=== PATIENT | female | born 1995 | race Caucasian/White ===

== ENCOUNTER 2021-10-29 09:20 | Emergency (ER) | payer OTHER, SELFPAY ==
[2021-10-29 09:41] VITALS: BP 105/71; PULSE 89; RESP 16; TEMP 37.1; O2SAT 99; BMI 25.2
--- NOTE | 2021-10-29 10:10 | ED_ITS ---
Documented by User: [email or web address] John 10/30/21 09:24 HPI - General: Chief complaint: OB/Uterine Contractions Stated complaint: 7 weeks /spotting Time Seen by Provider: 10/29/21 09:36 History of Present Illness: Patient is a 26-year-old female comes to the ED with spotting. Patient estimates she is approximately 7 weeks . This is her first . Yesterday she started having some bleeding that was little heavier. Today the bleeding has lightened up more and has become more of a spotting type bleeding but is consistent today. Denies any fevers, chills, nausea/vomiting, abdominal cramping pain, dysuria or hematuria. Her last menstrual period was September 10. Associated symptoms: Deny abdominal pain, dysuria, headache(s), nausea or vomiting Review of Systems Const: Denies: fever(s), chills or fatigue Eyes: Denies: change in vision or eye discomfort ENMT: Denies: throat pain, odynophagia, nasal discharge or nasal congestion Card: Denies: chest pain, palpitations, edema, swelling of feet/ankles, dyspnea on exertion or orthopnea Resp: Denies: dyspnea, productive cough or non-productive cough GI: Denies: abdominal pain, nausea, vomiting, diarrhea, constipation or hematochezia : Reports: vaginal bleeding (7 weeks with some spotting); Denies: flank pain, dysuria or hematuria Musc: Denies: neck pain, back pain or extremity swelling Skin/Breast: Denies: rash or new lesions Neuro: Denies: headache(s), numbness in extremities or weakness in extremities PFS ED PFSH: Medical History HTN (hypertension) Family History Father Hypertension Grandmother Hypertension H/O coronary angiogram with stents Hx of CABG Social History Smoking and tobacco status: never smoked Physical Exam Const: COMMON NORMALS: no acute distress, patient oriented x3 and alert GENERAL APPEARANCE: cooperative and comfortable HENMT: COMMON NORMALS: normocephalic HEAD & SCALP: normocephalic MOUTH: Normal oral and palatal mucosa present THROAT: posterior oropharynx normal and uvula midline Neck/C-Spine: COMMON NORMALS: supple GENERAL: Yes normal visual inspection Resp: COMMON NORMALS: normal respiratory effort, No retractions, No use of accessory muscles and clear to auscultation bilaterally AUSCULTATION: clear to auscultation bilaterally Cardio: COMMON NORMALS: regular rate, regular rhythm, S1 normal heart sound present, S2 normal heart sound present, No gallops present (Cardio), No clicks present (Cardio), No murmurs present (Cardio) and Peripheral pulses 2+ throughout RATE: regular rate RHYTHM: regular rhythm HEART SOUNDS: S1 normal heart sound present and S2 normal heart sound present PERIPHERAL PULSES: Peripheral pulses 2+ throughout GI: COMMON NORMALS: Normal to inspection, nondistended, normoactive bowel sounds present, Soft to palpation, non-tender and no masses PALPATION: Yes Soft to palpation : COMMON NORMALS: Yes no CVA tenderness BLADDER/KIDNEY EXAM: Yes no CVA tenderness Back/Pelvis: COMMON NORMALS: no CVA tenderness Extremity: COMMON NORMALS: normal to inspection Neuro: COMMON NORMALS: patient oriented x3 and moves all extremities SENSORIUM/ORIENTATION: Yes alert Skin: GENERAL SKIN EXAM: dry skin Course Vital Signs: Vital signs: Vital Signs Temperature 98.8 F 10/29/21 09:41 Pulse Rate 85 10/29/21 13:43 Respiratory Rate 16 10/29/21 13:43 Blood Pressure 99/55 10/29/21 13:43 Pulse Oximetry 99 10/29/21 13:43 MDM - OB/Uterine Contractions Medical Decision Making Patient is a G1 26-year-old female that is currently 7 weeks and comes to the ED with some vaginal spotting. Denies any heavy bleeding, cramping, nausea/vomiting or fevers. Vitals are stable. Patient appears nontoxic in no acute distress or pain. Rest of exam is benign. CBC, CMP and UA are un remarkable. hCG beta quant is 19,729. OB ultrasound shows a single live intrauterine with visualized pole and cardiac activity and estimated gestation age 6 weeks and 3 days. Small subchorionic hemorrhage noted. Patient was stable for discharge home and told to follow-up with her OB within the next week for reevaluation. She was diagnosed with bleeding in early due to subchorionic hemorrhage. Return to ED precautions given. Patient understood agree with plan. Lab Data I reviewed the patient's lab results. : 10/29/21 10:04 10/29/21 10:04 Radiology Impressions Obstetrics Ultrasound 10/29/21 10:13 IMPRESSION: 1. Single live intrauterine with tiny visualized pole and cardiac activity. Estimated gestational age 6 weeks 3 days 2. Small area of intrauterine subchorionic hemorrhage measuring 1.5 x 0.7 x 0.8 cm 3. No free fluid in the cul-de-sac. 4. Closed cervix measures 3.6 cm Laboratory Results WBC 6.5 10^3/uL (4.0-10.0) 10/29/21 10:04 RBC 4.18 10^6/uL (4.1-5.3) 10/29/21 10:04 Hgb 12.0 g/dL (11.5-15.3) 10/29/21 10:04 Hct 36.2 % (37.0-47.0) L 10/29/21 10:04 MCV 86.6 fl (81-99) 10/29/21 10:04 MCH 28.7 pg (28.0-34.0) 10/29/21 10:04 MCHC 33.1 g/dL (30.0-36.0) 10/29/21 10:04 RDW 12.5 % (12.1-15.1) 10/29/21 10:04 Plt Count 270 10^3/cmm (130-400) 10/29/21 10:04 MPV 10.1 fL (7.4-10.4) 10/29/21 10:04 Neut % (Auto) 69.2 % 10/29/21 10:04 Lymph % (Auto) 18.3 % 10/29/21 10:04 [place] % (Auto) 8.8 % 10/29/21 10:04 Eos % (Auto) 2.3 % 10/29/21 10:04 Baso % (Auto) 0.8 % 10/29/21 10:04 Neut # (Auto) 4.51 10^3/uL (1.8-7.7) 10/29/21 10:04 Lymph # (Auto) 1.2 10^3/uL (0.8-4.8) 10/29/21 10:04 [place] # (Auto) 0.6 10^3/uL (0.2-0.9) 10/29/21 10:04 Eos # (Auto) 0.2 10^3/uL (0.0-0.8) 10/29/21 10:04 Baso # (Auto) 0.1 10^3/uL (0.0-0.1) 10/29/21 10:04 Nucleated RBC % (auto) 0 % 10/29/21 10:04 Nucleated RBCs # 0.0 /100WBC 10/29/21 10:04 Sodium 136 mmol/L (136-145) 10/29/21 10:04 Potassium 3.8 mmol/L (3.5-5.1) 10/29/21 10:04 Chloride 101 mmol/L (98-107) 10/29/21 10:04 Carbon Dioxide 24 mmol/L (22-29) 10/29/21 10:04 Anion Gap 14.8 (5-19) 10/29/21 10:04 BUN 7 mg/dL (6-20) 10/29/21 10:04 Creatinine 0.7 mg/dL (0.5-0.9) 10/29/21 10:04 GFR Calculation 100.4 mL/min (90-130) 10/29/21 10:04 Glucose 95 mg/dL (65-115) 10/29/21 10:04 Calculated Osmolality 280 mOsm/kg (285-295) L 10/29/21 10:04 Calcium 8.9 mg/dL (8.5-10.5) 10/29/21 10:04 Total Bilirubin 0.3 mg/dL (0.15-1.2) 10/29/21 10:04 AST 17 U/L (0-32) 10/29/21 10:04 ALT 17 U/L (0-33) 10/29/21 10:04 Alkaline Phosphatase 74 IU/L (35-105) 10/29/21 10:04 Total Protein 7.2 g/dL (6.6-8.7) 10/29/21 10:04 Albumin 4.4 g/dL (3.5-5.2) 10/29/21 10:04 Globulin 2.8 g/dL (1.3-4.6) 10/29/21 10:04 Ser , Semi-Qnt 51974.00 mIU/mL 10/29/21 10:04 Urine Color Yellow (Yellow) 10/29/21 12:00 Urine Appearance Clear (CLEAR) 10/29/21 12:00 Urine pH 8 (5-7) H 10/29/21 12:00 Ur Specific [place] 1.010 (1.005-1.030) 10/29/21 12:00 Urine Protein Neg (Negative) 10/29/21 12:00 Urine Glucose (UA) Norm (Normal) 10/29/21 12:00 Urine Ketones Negative (Negative) 10/29/21 12:00 Urine Blood 3+ (Negative) H 10/29/21 12:00 Urine Nitrate Negative (Negative) 10/29/21 12:00 Urine Bilirubin Neg (Negative) 10/29/21 12:00 Prot Sulfosalicylic Acd Negative (Negative) 10/29/21 12:00 Urine Urobilinogen Norm mg/dL (Negative) 10/29/21 12:00 Ur Leukocyte Esterase Trace (Negative) H 10/29/21 12:00 Urine RBC 5-10 /hpf (0-2) H 10/29/21 12:00 Urine WBC 10-15 /hpf (0-5) H 10/29/21 12:00 Ur Squamous Epith Cells 5-10 /hpf (0-5) H 10/29/21 12:00 Amorphous Sediment Not Reportable 10/29/21 12:00 Urine Bacteria 1+ /hpf (NONE) H 10/29/21 12:00 Urine Mucus Trace /hpf 10/29/21 12:00 Discharge Plan Discharge Patient Disposition: Home Clinical Impression: Bleeding in early Subchorionic hemorrhage in first trimester Qualifiers: Fetus number: single or unspecified fetus Qualified Code(s): O41.8X10 - Other specified disorders of amniotic fluid and membranes, first trimester, not applicable or unspecified Condition: Stable Prescriptions: No Action labetalol 100 mg tablet 100 mg PO BID 0RF cetirizine [Zyrtec] 10 mg tablet 10 mg PO BEDTIME 0RF citalopram 20 mg tablet 20 mg PO BEDTIME 0RF Flonase 50 mcg/actuation Carlotta,Suspension 1 spray INTRANASAL DAILY PRN (Reason: Allergy Symptoms) 0RF Rx Instructions: administer into each nostril Multivitamins 28 mg iron- 800 mcg Tablet 1 tab PO DAILY 0RF magnesium citrate 125 mg Capsule 250 mg PO DAILY 0RF Discharge Orders: Discharge ED (Routine); Ordered 10/29/21 Ordered By: Richar Alex Referrals: Roxanna Armenta FNP [Primary Care Provider] - Discharge Diet: Regular Discharge Activity: Increase activity as tolerated Patient Instructions: Subchorionic Hemorrhage (ED), at 7 to 10 Weeks (ED) Activity Restrictions/Additional Instructions: Follow-up with your dairy clerk doctor within the next 5-7 days for reevaluation. Return to the ER or your medical provider if condition worsens. Please read and understand discharge instructions. Thank you for choosing [facility] for your healthcare needs today. Please realize this is an emergency room and that we are providing you with a m edical screening exam and this may not be complete and all inclusive of all the testing and or work up that you may need to determine your ailment or severity of your illness. It is very important that you follow up as instructed or that you return to the Emergency Department should you have concerns or if your condition changes or worsens in any way. Coding Level of Care Code ED Mailhouse Operator for Chg Fwd Exam Comprehensive Documented by User: Kory Subramanian DO 10/30/21 13:29 HPI - General: Chief complaint: OB/Uterine Contractions Stated complaint: 7 weeks /spotting Time Seen by Provider: 10/29/21 09:36 [facility] ED PFSH: Medical History HTN (hypertension) Family History Father Hypertension Grandmother Hypertension H/O coronary angiogram with stents Hx of CABG Social History Smoking and tobacco status: never smoked Course Vital Signs: Vital signs: Vital Signs Temperature 98.8 F 10/29/21 09:41 Pulse Rate 85 10/29/21 13:43 Respiratory Rate 16 10/29/21 13:43 Blood Pressure 99/55 10/29/21 13:43 Pulse Oximetry 99 10/29/21 13:43 MDM - OB/Uterine Contractions Medical Decision Making Patient is a G1 26-year-old female that is currently 7 weeks and comes to the ED with some vaginal spotting. Denies any heavy bleeding, cramping, nausea/vomiting or fevers. Vitals are stable. Patient appears nontoxic in no acute distress or pain. Rest of exam is benign. CBC, CMP and UA are unremarkable. hCG beta quant is 19,729. OB ultrasound shows a single live intrauterine with visualized pole and cardiac activity and estimated gestation age 6 weeks and 3 days. Small subchorionic hemorrhage noted. Patient was stable for discharge home and told to follow-up with her OB within the next week for reevaluation. She was diagnosed with bleeding in early due to subchorionic hemorrhage. Return to ED precautions given. Pat ient understood agree with plan. Chart reviewed and patient discussed with midlevel. Agree with assessment and plan. Lab Data : 10/29/21 10:04 10/29/21 10:04 Radiology Impressions Obstetrics Ultrasound 10/29/21 10:13 IMPRESSION: 1. Single live intrauterine with tiny visualized pole and cardiac activity. Estimated gestational age 6 weeks 3 days 2. Small area of intrauterine subchorionic hemorrhage measuring 1.5 x 0.7 x 0.8 cm 3. No free fluid in the cul-de-sac. 4. Closed cervix measures 3.6 cm Laboratory Results WBC 6.5 10^3/uL (4.0-10.0) 10/29/21 10:04 RBC 4.18 10^6/uL (4.1-5.3) 10/29/21 10:04 Hgb 12.0 g/dL (11.5-15.3) 10/29/21 10:04 Hct 36.2 % (37.0-47.0) L 10/29/21 10:04 MCV 86.6 fl (81-99) 10/29/21 10:04 MCH 28.7 pg (28.0-34.0) 10/29/21 10:04 MCHC 33.1 g/dL (30.0-36.0) 10/29/21 10:04 RDW 12.5 % (12.1-15.1) 10/29/21 10:04 Plt Count 270 10^3/cmm (130-400) 10/29/21 10:04 MPV 10.1 fL (7.4-10.4) 10/29/21 10:04 Neut % (Auto) 69.2 % 10/29/21 10:04 Lymph % (Auto) 18.3 % 10/29/21 10:04 [place] % (Auto) 8.8 % 10/29/21 10:04 Eos % (Auto) 2.3 % 10/29/21 10:04 Baso % (Auto) 0.8 % 10/29/21 10:04 Neut # (Auto) 4.51 10^3/uL (1.8-7.7) 10/29/21 10:04 Lymph # (Auto) 1.2 10^3/uL (0.8-4.8) 10/29/21 10:04 [place] # (Auto) 0.6 10^3/uL (0.2-0.9) 10/29/21 10:04 Eos # (Auto) 0.2 10^3/uL (0.0-0.8) 10/29/21 10:04 Baso # (Auto) 0.1 10^3/uL (0.0-0.1) 10/29/21 10:04 Nucleated RBC % (auto) 0 % 10/29/21 10:04 Nucleated RBCs # 0.0 /100WBC 10/29/21 10:04 Sodium 136 mmol/L (136-145) 10/29/21 10:04 Potassium 3.8 mmol/L (3.5-5.1) 10/29/21 10:04 Chloride 101 mmol/L (98-107) 10/29/21 10:04 Carbon Dioxide 24 mmol/L (22-29) 10/29/21 10:04 Anion Gap 14.8 (5-19) 10/29/21 10:04 BUN 7 mg/dL (6-20) 10/29/21 10:04 Creatinine 0.7 mg/dL (0.5-0.9) 10/29/21 10:04 GFR Calculation 100.4 mL/min (90-130) 10/29/21 10:04 Glucose 95 mg/dL (65-115) 10/29/21 10:04 Calculated Osmolality 280 mOsm/kg (285-295) L 10/29/21 10:04 Calcium 8.9 mg/dL (8.5-10.5) 10/29/21 10:04 Total Bilirubin 0.3 mg/dL (0.15-1.2) 10/29/21 10:04 AST 17 U/L (0-32) 10/29/21 10:04 ALT 17 U/L (0-33) 10/29/21 10:04 Alkaline Phosphatase 74 IU/L (35-105) 10/29/21 10:04 Total Protein 7.2 g/dL (6.6-8.7) 10/29/21 10:04 Albumin 4.4 g/dL (3.5-5.2) 10/29/21 10:04 Globulin 2.8 g/dL (1.3-4.6) 10/29/21 10:04 Ser , Semi-Qnt 93335.00 mIU/mL 10/29/21 10:04 Urine Color Yellow (Yellow) 10/29/21 12:00 Urine Appearance Clear (CLEAR) 10/29/21 12:00 Urine pH 8 (5-7) H 10/29/21 12:00 Ur Specific [place] 1.010 (1.005-1.030) 10/29/21 12:00 Urine Protein Neg (Negative) 10/29/21 12:00 Urine Glucose (UA) Norm (Normal) 10/29/21 12:00 Urine Ketones Negative (Negative) 10/29/21 12:00 Urine Blood 3+ (Negative) H 10/29/21 12:00 Urine Nitrate Negative (Negative) 10/29/21 12:00 Urine Bilirubin Neg (Negative) 10/29/21 12:00 Prot Sulfosalicylic Acd Negative (Negative) 10/29/21 12:00 Urine Urobilinogen Norm mg/dL (Negative) 10/29/21 12:00 Ur Leukocyte Esterase Trace (Negative) H 10/29/21 12:00 Urine RBC 5-10 /hpf (0-2) H 10/29/21 12:00 Urine WBC 10-15 /hpf (0-5) H 10/29/21 12:00 Ur Squamous Epith Cells 5-10 /hpf (0-5) H 10/29/21 12:00 Amorphous Sediment Not Reportable 10/29/21 12:00 Urine Bacteria 1+ /hpf (NONE) H 10/29/21 12:00 Urine Mucus Trace /hpf 10/29/21 12:00 Discharge Plan Discharge Patient Disposition: Home Clinical Impression: Bleeding in early Subchorionic hemorrhage in first trimester Qualifiers: Fetus number: single or unspecified fetus Qualified Code(s): O41.8X10 - Other specified disorders of amniotic fluid and membranes, first trimester, not applicable or unspecified Condition: Stable Prescriptions: No Action labetalol 100 mg tablet 100 mg PO BID 0RF cetirizine [Zyrtec] 10 mg tablet 10 mg PO BEDTIME 0RF citalopram 20 mg tablet 20 mg PO BEDTIME 0RF Flonase 50 mcg/actuation Carlotta,Suspension 1 spray INTRANASAL DAILY PRN (Reason: Allergy Symptoms) 0RF Rx Instructions: administer into each nostril Multivitamins 28 mg iron- 800 mcg Tablet 1 tab PO DAILY 0RF magnesium citrate 125 mg Capsule 250 mg PO DAILY 0RF Discharge Orders: Discharge ED (Routine); Ordered 10/29/21 Ordered By: Richar Alex Referrals: Roxanna Armenta FNP [Primary Care Provider] - Discharge Diet: Regular Discharge Activity: Increase activity as tolerated Patient Instructions: Subchorionic Hemorrhage (ED), at 7 to 10 Weeks (ED) Activity Restrictions/Additional Instructions: Follow-up with your dairy clerk doctor within the next 5-7 days for reevaluation. Return to the ER or your medical provider if condition worsens. Please read and understand discharge instructions. Thank you for choosing [facility] for your healthcare needs today. Tammy wilkins realize this is an emergency room and that we are providing you with a medical screening exam and this may not be complete and all inclusive of all the testing and or work up that you may need to determine your ailment or severity of your illness. It is very important that you follow up as instructed or that you return to the Emergency Department should you have concerns or if your condition changes or worsens in any way. Coding Level of Care Code ED Mailhouse Operator for Ce Fwd Exam Comprehensive
--- NOTE | 2021-10-29 10:13 | US_ITS ---
WS: [id number] ULTRASOUND EARLY TECHNIQUE: Transabdominal sonography of the pelvis was performed. Followed by transvaginal sonography to better evaluate the uterus and ovaries. CLINICAL INFORMATION: 7 weeks with light vaginal bleeding LMP: 09/12/2021 Beta hCG: Unknown. COMPARISON: None. FINDINGS: Cervix measures 3.6 cm. Incidental nabothian cysts in the cervix. UTERUS AND GESTATIONAL SAC Intrauterine gestations: Single live intrauterine gestation with cardiac activity. Yolk sac is presen t. Estimated gestational age: 6w3d Estimated delivery June 21, 2022 Yolk sac: 0.3 cm. [place] rump length (CRL): 0.6 cm. heart motion: 124 BPM. Subchorionic hemorrhage: Small area of intrauterine subchorionic hemorrhage adjacent to the gestational sac measuring 1.5 x 0. 7 x 0.8 cm OVARIES Right ovary: Normal. Left ovary: Normal. FREE FLUID None. US/US OB lmt with transvaginal IMPRESSION: 1. Single live intrauterine with tiny visualized pole and feta l cardiac activity. Estimated gestational age 6 weeks 3 days 2. Small area of intrauterine subchorionic hemorrhage measuring 1.5 x 0.7 x 0. 8 cm 3. No free fluid in the cul-de-sac. 4. Closed cervix measures 3.6 cm
[2021-10-29 10:16] LABS: Basophils # 0.1 10^3/uL (0.0-0.1); Basophils % 0.8 %; Eosinophils # 0.2 10^3/uL (0.0-0.8); Eosinophils % 2.3 %; Hematocrit 36.2 % (37.0-47.0); Lymphocytes # 1.2 10^3/uL (0.8-4.8); Lymphocytes % 18.3 %; Mean Corpuscular HGB Conc 33.1 g/dL (30.0-36.0); Mean Corpuscular Hemoglobin 28.7 pg (28.0-34.0); Mean Corpuscular Volume 86.6 fl (81-99); Mean Platelet Volume 10.1 fL (7.4-10.4); Monocytes # 0.6 10^3/uL (0.2-0.9); Monocytes % 8.8 %; Neutrophils # 4.51 10^3/uL (1.8-7.7); Neutrophils % 69.2 %; Nucleated Red Blood Cells % 0 %; Platelet Count 270 10^3/cmm (130-400); Red Blood Count 4.18 10^6/uL (4.1-5.3); Red Cell Distribution Width 12.5 % (12.1-15.1); White Blood Count 6.5 10^3/uL (4.0-10.0)
[2021-10-29 10:17] VITALS: BP 111/90; PULSE 81; O2SAT 100
[2021-10-29 10:53] LABS: Alanine Aminotransferase 17 U/L (0-33); Albumin Level 4.4 g/dL (3.5-5.2); Alkaline Phosphatase 74 IU/L (35-105); Anion Gap 14.8 (5-19); Aspartate Amino Transferase 17 U/L (0-32); Blood Urea Nitrogen 7 mg/dL (6-20); Calcium 8.9 mg/dL (8.5-10.5); Carbon Dioxide 24 mmol/L (22-29); Chloride 101 mmol/L (98-107); Globulin 2.8 g/dL (1.3-4.6); Glomerular Filtration Rate 100.4 mL/min (90-130); Glucose 95 mg/dL (65-115); Osmolality Calculated 280 mOsm/kg (285-295); Potassium 3.8 mmol/L (3.5-5.1); Sodium 136 mmol/L (136-145); Total Bilirubin 0.3 mg/dL (0.15-1.2); Total Protein 7.2 g/dL (6.6-8.7)
[2021-10-29 12:00] VITALS: BP 121/72; PULSE 86; O2SAT 99
[2021-10-29 13:04] LABS: Glucose Urine UA Norm (Normal); Protein Urine Neg (Negative); Urine Appearance Clear (CLEAR); Urine Color Yellow (Yellow); pH Urine 8 (5-7)
[2021-10-29 13:05] LABS: Add Urine Culture? No; Add Urine Microscopic? YES; Bacteria Urine 1+ /hpf; Bilirubin Urine Neg (Negative); Blood Urine 3+ (Negative); Ketones Urine Negative (Negative); Leukocyte Esterase Urine Trace (Negative); Mucus Urine TRACE /hpf; Nitrate Urine Negative (Negative); Sulfosalicylic Acid Urine Negative (Negative); Urobilinogen Urine Norm (Negative)
[2021-10-29 13:43] VITALS: BP 99/55; PULSE 85; RESP 16; O2SAT 99
== END 2021-10-29 13:43 | disposition home or self-care (01) ==
PROVIDERS: Emergency Provider Physician Assistant; PCP Nurse Practitioner Family
DX: O41.8X10 Other specified disorders of amniotic fluid and membranes, first trimester, not applicable or unspecified (principal); Z3A.01 Less than 8 weeks gestation of pregnancy; O16.1 Unspecified maternal hypertension, first trimester
CPT/HCPCS: 76815; 76817; 80053; 81001; 84702; 85025; 99283

== ENCOUNTER → 2021-11-07 14:47 | Outpatient (BNVA) | payer OTHER, SELFPAY | PROVIDERS: PCP Nurse Practitioner Family; Visit Provider Family Medicine | DX: I10 Essential (primary) hypertension (principal); Z34.90 Encounter for supervision of normal pregnancy, unspecified, unspecified trimester | CPT/HCPCS: 80307; 81000; 87086 ==

== ENCOUNTER 2021-11-13 10:46 | Outpatient (CLI) | payer OTHER, SELFPAY ==
[2021-11-13 11:59] LABS: Basophils # 0.1 10^3/uL (0.0-0.1); Basophils % 0.6 %; Eosinophils # 0.1 10^3/uL (0.0-0.8); Eosinophils % 0.7 %; Hematocrit 34.5 % (37.0-47.0); Hemoglobin 11.6 g/dL (11.5-15.3); Lymphocytes # 1.7 10^3/uL (0.8-4.8); Lymphocytes % 17.1 %; Mean Corpuscular HGB Conc 33.6 g/dL (30.0-36.0); Mean Corpuscular Hemoglobin 28.4 pg (28.0-34.0); Mean Corpuscular Volume 84.6 fl (81-99); Mean Platelet Volume 10.7 fL (7.4-10.4); Monocytes # 0.5 10^3/uL (0.2-0.9); Neutrophils % 76.2 %; Nucleated Red Blood Cells % 0 %; Platelet Count 299 10^3/cmm (130-400); Red Blood Count 4.08 10^6/uL (4.1-5.3); Red Cell Distribution Width 12.2 % (12.1-15.1)
[2021-11-13 13:01] LABS: Hepatitis B Surface Antigen Non-Reactive (Nonreactive)
[2021-11-13 13:04] LABS: Rapid Plasma Reagin Syphilis Nonreactive (Nonreactive); Thyroid Stimulating Hormone 1.49 uIU/mL (0.27-4.20)
[2021-11-13 13:41] LABS: Progesterone 20.22 ng/mL
== END 2021-11-13 10:47 | disposition home or self-care (01) ==
PROVIDERS: PCP Nurse Practitioner Family; Visit Provider Family Medicine
DX: I10 Essential (primary) hypertension (principal); Z34.90 Encounter for supervision of normal pregnancy, unspecified, unspecified trimester
CPT/HCPCS: 36415; 84144; 84443; 85025; 86592; 86762; 86850; 86900; 87340

== ENCOUNTER → 2021-11-19 11:28 | Outpatient (BNVA) | payer OTHER, SELFPAY | PROVIDERS: PCP Nurse Practitioner Family; Visit Provider Family Medicine | DX: Z34.90 Encounter for supervision of normal pregnancy, unspecified, unspecified trimester (principal) | CPT/HCPCS: 84156 ==

== ENCOUNTER → 2022-02-05 10:40 | Outpatient (BNVA) | payer OTHER, SELFPAY | PROVIDERS: PCP Nurse Practitioner Family; Visit Provider Family Medicine | DX: Z34.00 Encounter for supervision of normal first pregnancy, unspecified trimester (principal) | CPT/HCPCS: 76805 ==

== ENCOUNTER → 2022-02-27 13:38 | Outpatient (BNVA) | payer OTHER, SELFPAY | PROVIDERS: PCP Nurse Practitioner Family; Visit Provider Family Medicine | DX: Z34.00 Encounter for supervision of normal first pregnancy, unspecified trimester (principal) | CPT/HCPCS: 76815 ==

== ENCOUNTER → 2022-03-07 08:51 | Outpatient (BNVA) | payer OTHER, SELFPAY | PROVIDERS: PCP Nurse Practitioner Family; Visit Provider Family Medicine | DX: Z34.00 Encounter for supervision of normal first pregnancy, unspecified trimester (principal) | CPT/HCPCS: 82950; 84702; 87806 ==

== ENCOUNTER → 2022-03-19 12:23 | Outpatient (BNVA) | payer OTHER, SELFPAY | PROVIDERS: PCP Nurse Practitioner Family; Visit Provider Family Medicine | DX: R10.31 Right lower quadrant pain (principal); I10 Essential (primary) hypertension; Z34.00 Encounter for supervision of normal first pregnancy, unspecified trimester; O41.8X10 Other specified disorders of amniotic fluid and membranes, first trimester, not applicable or unspecified; O46.8X1 Other antepartum hemorrhage, first trimester; Z34.90 Encounter for supervision of normal pregnancy, unspecified, unspecified trimester | CPT/HCPCS: 80053; 81000; 84702; 85025; 86140; 86141; 87077; 87086; 87106; 87184; 87389; 87806 ==

== ENCOUNTER 2022-03-20 12:54 | Outpatient (CLI) | payer OTHER, SELFPAY ==
--- NOTE | 2022-03-20 13:00 | US_ITS ---
WS: [id number] ULTRASOUND ABDOMEN LIMITED CLINICAL INFORMATION: RLQ/RUQ abd pain - COMPARISON: None. FINDINGS: Appendix not visualized. No free fluid in the RIGHT lower quadrant. Liver Size: Normal. Craniocaudal length: 14.6 cm. Echogenicity: Normal. Surface nodularity: None. Mass (size and location): None. Bile ducts Intrahepatic ducts: Normal. Common bile duct diameter: 0.4 cm. Gallbladder Nonmobile gallbladder calculus at the level of the gallbladder neck. Gallbladder sludge. No gallbladd er wall thickening or pericholecystic fluid. Gallstones: Present Gallbladder sludge: Present Gallbladder wall thickening: None. Pericholecystic fluid: None. Pancreas Normal as visualized. Right kidney: Normal. Hydronephrosis: None. Size: 11.5 cm x 6.8 cm x 4.9 cm. Abdominal aorta and IVC Visualized portions are normal. Ascites: None. US/US abdomen limited [id number] IMPRESSION: 1. Normal liver. 2. Shadowing gallbladder calculus at the gallbladder neck. No movement of calc ulus with maneuvers. Gallbladder sludge. Pain reported in the RIGHT upper quadr ant although No significant gallbladder wall thickening or pericholecystic flui d to indicate acute cholecystitis. Recommend correlation with laboratory marker s. 3. Normal common bile duct. 4. No hydronephrosis in RIGHT kidney. 5. Appendix not visualized.
== END 2022-03-20 12:55 | disposition home or self-care (01) ==
PROVIDERS: PCP Nurse Practitioner Family; Visit Provider Family Medicine
DX: Z34.00 Encounter for supervision of normal first pregnancy, unspecified trimester (principal); R10.31 Right lower quadrant pain; R10.11 Right upper quadrant pain; R11.2 Nausea with vomiting, unspecified
CPT/HCPCS: 76705

== ENCOUNTER 2022-03-26 16:39 | Outpatient (CLI) | payer OTHER, SELFPAY ==
[2022-03-26 16:55] VITALS: BP 136/82; PULSE 106
[2022-03-26 16:59] VITALS: RESP 17; TEMP 36.9; BMI 32.9
[2022-03-26 17:10] VITALS: BP 114/74; PULSE 93
[2022-03-26 17:25] VITALS: BP 117/76; PULSE 94
== END 2022-03-26 17:32 | disposition home or self-care (01) ==
LOC: OPOB 16:47 → OBGYN 16:48
PROVIDERS: PCP Nurse Practitioner Family; Visit Provider Family Medicine
DX: O26.899 Other specified pregnancy related conditions, unspecified trimester (principal); Z3A.00 Weeks of gestation of pregnancy not specified; M54.9 Dorsalgia, unspecified
CPT/HCPCS: 59025; 99211

== ENCOUNTER 2022-03-26 17:36 | Emergency (ER) | payer OTHER, SELFPAY ==
[2022-03-26] VITALS (9 sets, daily range): BP systolic 106–137; BP diastolic 61–86; PULSE 84–105; RESP 15–16; TEMP 36.2; O2SAT 97–100
--- NOTE | 2022-03-26 18:40 | USR_ITS ---
PROCEDURE INFORMATION: Exam: US Abdomen, Limited; Right Upper Quadrant Exam date and time: 03/26/2022 7:32 PM Age: 26 years old Clinical indication: Abdominal pain; Flank; Right; ; Additional info: Abd pain TECHNIQUE: Imaging protocol: Real time ultrasound of the abdomen with image documentation. Limited exam focused on the right upper quadrant. COMPARISON: US abdomen limited [id number] 03/20/2022 1:05 PM FINDINGS: Liver: The liver is unremarkable. Gallbladder: The gallbladder is nondistended. There is a shadowing mobile gallstone in the lumen. The gallbladder wall is not thickened. There is no pericholecystic fluid. Sonographic Bassett sign is negative. Biliary ducts: The common bile duct is nondilated measuring 4 mm Pancreas: Pancreas is unremarkable. Right kidney: The right kidney is unremarkable. No hydronephrosis. Aorta: The abdominal aorta is unremarkable. the IVC is unremarkable. Portal venous: The main portal vein is patent. US/US gall bladder [id number] IMPRESSION: 1. Cholelithiasis without evidence of cholecystitis. 2. No hydronephrosis on the right.
--- NOTE | 2022-03-26 19:21 | W.ED.ABDPA2 ---
HPI - Abdominal Pain General: Chief Complaint: Abdominal Pain Stated Complaint: ABD Pain Time Seen by Provider: 03/26/22 19:21 History of Present Illness: Ms. Mercedes is a 26-year-old lady currently approximately 28 weeks with known history of cholelithiasis presenting to the emergency department due to more constant flank pain. Patient reports sharp pain in the right flank starting at 6 AM symptoms more constant since that time. She reports this is similar to prior episodes and what brought her in previously for evaluation however is persisted. Four episodes of nausea and vomiting which is nonbilious and nonbloody. No fevers or chills. No respiratory symptoms. Denies other GI symptoms. No other specific changes in health, exacerbating, or alleviating factors identified. Onset (ago): hour(s) Pain Consistency: constant Location: RUQ Severity: moderate Quality: stabbing and sharp Migration to: no migration Exacerbating factors: nothing Relieving factors: nothing Context: other Associated Symptoms: Reports nausea and vomiting Review of Systems General: Reports: 10 or more systems reviewed and unremarkable except in HPI and below GI: Reports: nausea and vomiting PFSH ED PFSH: Medical History Contraceptive use Encounter for dietary treatment of hypertension HTN (hypertension) Psychiatric care Family History Father Hypertension Grandmother Hypertension H/O coronary angiogram with stents Hx of CABG Social History Smoking and tobacco status: never smoked Physical Exam Const: COMMON NORMALS: alert GENERAL APPEARANCE: cooperative and well developed HENMT: COMMON NORMALS: normocephalic and atraumatic HEAD & SCALP: normocephalic and atraumatic Eye: COMMON NORMALS: conjunctivae normal CONJUNCTIVA: Yes conjunctivae normal SCLERA: sclerae normal Neck/C-Spine: COMMON NORMALS: supple GENERAL: Yes trachea midline Resp: COMMON NORMALS: normal respiratory effort EFFORT & INSPECTION: Yes able to speak in complete sentences Cardio: COMMON NORMALS: regular rate and regular rhythm RATE: regular rate RHYTHM: regular rhythm GI: COMMON NORMALS: Soft to palpation PALPATION: Yes Soft to palpation, Yes Tenderness to palpation present (GI), No Guarding due to palpation present (GI) and No Rigid due to palpation Extremity: GENERAL: Yes normal exam except as noted and No edema Neuro: COMMON NORMALS: moves all extremities SENSORIUM/ORIENTATION: Yes alert and No Orientation impaired Psych: COMMON NORMALS: mental status grossly normal and Normal thought process present THOUGHT PROCESS: Normal thought process present Course Vital Signs: Vital signs: Vital Signs Temperature 97.2 F L 03/26/22 17:39 Pulse Rate 95 03/26/22 21:00 Respiratory Rate 16 03/26/22 21:00 Blood Pressure 107/61 03/26/22 21:00 Pulse Oximetry 98 03/26/22 21:00 Oxygen Delivery Me thod 03/26/22 17:39 MDM - Abdominal Pain Medical Decision Making 26-year-old lady presenting with known history of cholelithiasis and now more constant abdominal discomfort. Patient is nontoxic on exam. Exam as above. Labs with minimal leukocytosis, normocytic anemia. No significant metabolic derangement outside expected for . No evidence of UTI. Ultrasound with no evidence of cholecystitis. Patient improved with antiemetic, acetaminophen, fluids and able to tolerate p.o. intake. The results of ED evaluation were discussed with the patient including prescriptions and/or symptomatic cares (if applicable) including appropriate and responsible use, followup plan, and return precautions. The patient verbalized understanding and felt safe for discharge. Medical Records I reviewed the patient's medical records. Lab Data I reviewed the patient's lab results. 03/26/22 19:55 03/26/22 19:55 Labs/Radiology: Radiology Impressions Gallbladder Ultrasound 03/26/22 18:40 IMPRESSION: 1. Cholelithiasis without evidence of cholecystitis. 2. No hydronephrosis on the right. Laboratory Results WBC 11.5 10^3/uL (4.0-10.0) H 03/26/22 19:55 RBC 3.44 10^6/uL (4.1-5.3) L 03/26/22 19:55 Hgb 10.1 g/dL (11.5-15.3) L 03/26/22 19:55 Hct 31.1 % (37.0-47.0) L 03/26/22 19:55 MCV 90.4 fl (81-99) 03/26/22 19:55 MCH 29.4 pg (28.0-34.0) 03/26/22 19:55 MCHC 32.5 g/dL (30.0-36.0) 03/26/22 19:55 RDW 12.8 % (12.1-15.1) 03/26/22 19:55 Plt Count 218 10^3/cmm (130-400) 03/26/22 19:55 MPV 9.9 fL (7.4-10.4) 03/26/22 19:55 Neut % (Auto) 76.9 % 03/26/22 19:55 Lymph % (Auto) 14.3 % 03/26/22 19:55 Rush % (Auto) 5.9 % 03/26/22 19:55 Eos % (Auto) 1.0 % 03/26/22 19:55 Baso % (Auto) 0.3 % 03/26/22 19:55 Neut # (Auto) 8.84 10^3/uL (1.8-7.7) H 03/26/22 19:55 Lymph # (Auto) 1.6 10^3/uL (0.8-4.8) 03/26/22 19:55 Rush # (Auto) 0.7 10^3/uL (0.2-0.9) 03/26/22 19:55 Eos # (Auto) 0.1 10^3/uL (0.0-0.8) 03/26/22 19:55 Baso # (Auto) 0.0 10^3/uL (0.0-0.1) 03/26/22 19:55 Nucleated RBC % (auto) 0 % 03/26/22 19:55 Nucleated RBCs # 0.0 /100WBC 03/26/22 19:55 Sodium 138 mmol/L (136-145) 03/26/22 19:55 Potassium 3.7 mmol/L (3.5-5.1) 03/26/22 19:55 Chloride 103 mmol/L (98-107) 03/26/22 19:55 Carbon Dioxide 21 mmol/L (22-29) L 03/26/22 19:55 Anion Gap 17.7 (5-19) 03/26/22 19:55 BUN 4 mg/dL (6-20) L 03/26/22 19:55 Creatinine 0.5 mg/dL (0.5-0.9) 03/26/22 19:55 GFR Calculation 148.0 mL/min (90-130) H 03/26/22 19:55 Glucose 86 mg/dL (65-115) 03/26/22 19:55 Calculated Osmolality 282 mOsm/kg (285-295) L 03/26/22 19:55 Calcium 8.8 mg/dL (8.5-10.5) 03/26/22 19:55 Total Bilirubin 0.2 mg/dL (0.15-1.2) 03/26/22 19:55 AST 15 U/L (0-32) 03/26/22 19:55 ALT 9 U/L (0-33) 03/26/22 19:55 Alkaline Phosphatase 75 U/L (35-105) 03/26/22 19:55 Total Protein 6.5 g/dL (6.6-8.7) L 03/26/22 19:55 Albumin 3.4 g/dL (3.5-5.2) L 03/26/22 19:55 Globulin 3.1 g/dL (1.3-4.6) 03/26/22 19:55 Lipase 16 U/L (13-60) 03/26/22 19:55 Urine Color Yellow (Yellow) 03/26/22 21:51 Urine Appearance Clear (CLEAR) 03/26/22 21:51 Urine pH 6 (5-7) 03/26/22 21:51 Ur Specific [place] 1.015 (1.005-1.030) 03/26/22 21:51 Urine Protein Neg (Negative) 03/26/22 21:51 Urine Glucose (UA) Norm (Normal) 03/26/22 21:51 Urine Ketones 2+ (Negative) H 03/26/22 21:51 Urine Blood Neg (Negative) 03/26/22 21:51 Urine Nitrate Negative (Negative) 03/26/22 21:51 Urine Bilirubin Neg (Negative) 03/26/22 21:51 Urine Urobilinogen Norm mg/dL (Negative) 03/26/22 21:51 Ur Leukocyte Esterase Negative (Negative) 03/26/22 21:51 Discharge Plan Discharge Patient Disposition: Home Clinical Impression: Cholelithiasis affecting , antepartum Condition: Stable Prescriptions: New cyclobenzaprine 10 mg tablet 10 mg PO BID PRN (Reason: muscle spasm) Qty: 10 0RF No Action cetirizine [Zyrtec] 10 mg tablet 10 mg PO BEDTIME ondansetron 8 mg tablet,disintegrating 8 mg PO Q8H PRN (Reason: nausea and vomiting) Qty: 30 4RF ampicillin 500 mg capsule 500 mg PO QID 10 Days Qty: 40 0RF Flonase 50 mcg/actuation Vadito,Suspension 1 spray INTRANASAL DAILY PRN (Reason: Allergy Symptoms) Rx Instructions: administer into each nostril PNV cmb#95-ferrous fumarate-FA [ Multivitamins] 28 mg iron- 800 mcg Tablet 1 tab PO DAILY Discharge Orders: Discharge ED (Routine); Ordered 03/26/22 Ordered By: Gautam Majano Referrals: Roxanna Armenta FNP [Primary Care Provider] - Discharge Diet: Low Fat Discharge Activity: Increase activity as tolerated Patient Instructions: Biliary Colic (ED) Activity Restrictions/Additional Instructions: Thank you for visiting the emergency department. You were seen and evaluated for flank and back pain. The exact cause of your symptoms is unclear though likely related to biliary colic. Treatment is limited during , do not take NSAIDs such as ibuprofen, Aleve, or other similar medications within the same class. Please follow-up with your surgeon and marketing information coordinator as well as primary care provider. Return to the emergency department for fevers, inability to tolerate oral intake, uncontrolled symptoms or anything else that you are concerned about and feel needs emergency department evaluation. Coding Level of Care Code ED Front Tender for Ce Singletary
[2022-03-26 20:03] LABS: Basophils % 0.3 %; Eosinophils # 0.1 10^3/uL (0.0-0.8); Hematocrit 31.1 % (37.0-47.0); Hemoglobin 10.1 g/dL (11.5-15.3); Lymphocytes # 1.6 10^3/uL (0.8-4.8); Lymphocytes % 14.3 %; Mean Corpuscular HGB Conc 32.5 g/dL (30.0-36.0); Mean Corpuscular Hemoglobin 29.4 pg (28.0-34.0); Mean Corpuscular Volume 90.4 fl (81-99); Mean Platelet Volume 9.9 fL (7.4-10.4); Monocytes # 0.7 10^3/uL (0.2-0.9); Monocytes % 5.9 %; Neutrophils # 8.84 10^3/uL (1.8-7.7); Neutrophils % 76.9 %; Nucleated Red Blood Cells % 0 %; Platelet Count 218 10^3/cmm (130-400); Red Blood Count 3.44 10^6/uL (4.1-5.3); Red Cell Distribution Width 12.8 % (12.1-15.1); White Blood Count 11.5 10^3/uL (4.0-10.0)
[2022-03-26 20:18] LABS: Alanine Aminotransferase 9 U/L (0-33); Albumin Level 3.4 g/dL (3.5-5.2); Alkaline Phosphatase 75 U/L (35-105); Anion Gap 17.7 (5-19); Aspartate Amino Transferase 15 U/L (0-32); Blood Urea Nitrogen 4 mg/dL (6-20); Calcium 8.8 mg/dL (8.5-10.5); Carbon Dioxide 21 mmol/L (22-29); Chloride 103 mmol/L (98-107); Globulin 3.1 g/dL (1.3-4.6); Glucose 86 mg/dL (65-115); Lipase 16 U/L (13-60); Osmolality Calculated 282 mOsm/kg (285-295); Potassium 3.7 mmol/L (3.5-5.1); Sodium 138 mmol/L (136-145); Total Bilirubin 0.2 mg/dL (0.15-1.2); Total Protein 6.5 g/dL (6.6-8.7)
[2022-03-26] MEDS: sodium chloride 0.9% 1,000 ML 999 ML IV (20:20)
[2022-03-26] MEDS: metoclopramide 5 mg/mL SDV 2 mL 10 MG IVP (20:20)
[2022-03-26] MEDS: acetaminophen 1,000 MG/100 ML PIGGYBACK 400 MG IV (20:20)
[2022-03-26] MEDS: cyclobenzaprine 10 mg Tablet PO (20:31)
[2022-03-26 22:03] LABS: Add Urine Microscopic? NO; Charge for UA Resulting for Rev
[2022-03-26 22:05] LABS: Bilirubin Urine Neg (Negative); Blood Urine Neg (Negative); Glucose Urine UA Norm (Normal); Ketones Urine 2+ (Negative); Leukocyte Esterase Urine Negative (Negative); Nitrate Urine Negative (Negative); Protein Urine Neg (Negative); Specific Gravity, Urine 1.015 (1.005-1.030); Urine Appearance Clear (CLEAR); Urine Color Yellow (Yellow); Urobilinogen Urine Norm (Negative); pH Urine 6 (5-7)
== END 2022-03-26 22:28 | disposition home or self-care (01) ==
PROVIDERS: Nurse Practitioner Family; Emergency Provider Emergency Medicine; PCP Nurse Practitioner Family
DX: O99.613 Diseases of the digestive system complicating pregnancy, third trimester (principal); K80.20 Calculus of gallbladder without cholecystitis without obstruction; Z3A.28 28 weeks gestation of pregnancy
CPT/HCPCS: 36415; 76705; 80053; 81003; 83690; 85025; 96361; 96374; 96375; 99285; J0131; J2765; J7030

== ENCOUNTER 2022-05-21 07:18 | Outpatient (CLI) | payer OTHER, SELFPAY ==
--- NOTE | 2022-05-21 07:15 | US_ITS ---
WS: [id number] LIMITED OBSTETRICAL ULTRASOUND HISTORY: MICHELLE/EFW for measuring small for gestational age. COMPARISON: 10/29/2021, 02/05/2022 and 02/27/2022 Presentation: Vertex. Cervix: Cervix is very difficult to visualize. The head is very deep within the pelvis distorti ng and obscuring the cervix. Placenta: Fundal. Grade: 2 HEART: FHR of 138 BPM. measurements: BPD = not accurate for measurement due to head position very deep within the pelvis. Attempted Trendelenburg position to change position of the head without success. HC = not accurate for measurement due to head position very deep within the pelvis. AC = 31.6 cm = 35w4d; 42nd percentile FL = 6.9 cm = 35w3d; 26 percentile MICHELLE: 13.0 cm EFW: 2641 g; AGA by ultrasound: 35w4d DELONTE by ultrasound: 06/21/2022 US/US OB limited [id number] IMPRESSION: 1. Single intrauterine gestation of 35 weeks 4 days with an EDC of 06/21/2022. Suboptimal imaging evaluation for accurate growth. head measurement s could not be obtained accurately and were not included in the biometry for fe sarah weight and age estimation. The DELONTE based upon the abdominal circumference a nd femur length is appropriate for the first trimester ultrasound gestational a ge estimate. 2. Accurate estimation of the weight is difficult. The estimation provid ed above of the weight does include the head measurements which are not a ccurate.
== END 2022-05-21 07:19 | disposition home or self-care (01) ==
LOC: RAD 07:19
PROVIDERS: PCP Nurse Practitioner Family; Visit Provider Family Medicine
DX: Z36.4 Encounter for antenatal screening for fetal growth retardation (principal); Z3A.35 35 weeks gestation of pregnancy
CPT/HCPCS: 76815; 87081

== ENCOUNTER 2022-06-10 08:02 | Inpatient (IN) | payer OTHER, SELFPAY ==
[2022-06-10] VITALS (81 sets, daily range): BP systolic 62–153; BP diastolic 33–93; PULSE 59–169; RESP 14–18; TEMP 36.2–36.7; O2SAT 91–100; BMI 32.9
--- NOTE | 2022-06-10 08:38 | US_ITS ---
WS: [id number] ULTRASOUND OB FOCUSED HISTORY: presentation and amniotic fluid index. COMPARISON: 05/21/2022 Fetus in vertex position. Cervix is obscured by the head. Posterior grade 2 placenta. heart rate at 147 BPM. Amniotic fluid index: 15.6 cm. Single deepest vertical pocket 5.2 cm. US/US OB limited [id number] IMPRESSION: 1. Vertex position. 2. Normal amniotic fluid.
[2022-06-10 08:46] LABS: Basophils % 0.4 %; Eosinophils # 0.1 10^3/uL (0.0-0.8); Eosinophils % 1.1 %; Hematocrit 34.3 % (37.0-47.0); Hemoglobin 11.3 g/dL (11.5-15.3); Lymphocytes # 1.9 10^3/uL (0.8-4.8); Lymphocytes % 18.7 %; Mean Corpuscular HGB Conc 32.9 g/dL (30.0-36.0); Mean Corpuscular Hemoglobin 28.7 pg (28.0-34.0); Mean Corpuscular Volume 87.1 fl (81-99); Mean Platelet Volume 10.8 fL (7.4-10.4); Monocytes # 0.8 10^3/uL (0.2-0.9); Monocytes % 8.2 %; Neutrophils # 7.14 10^3/uL (1.8-7.7); Neutrophils % 70.4 %; Nucleated Red Blood Cells % 0 %; Platelet Count 208 10^3/cmm (130-400); Red Blood Count 3.94 10^6/uL (4.1-5.3); Red Cell Distribution Width 13.3 % (12.1-15.1); White Blood Count 10.1 10^3/uL (4.0-10.0)
[2022-06-10] MEDS: oxytocin 30 UNIT/500 ML BAG IV (09:10)
--- NOTE | 2022-06-10 09:10 | PM.HP ---
Providers/Chief Complaint Primary Care Provider: IVANIA Gonzales Chief Complaint: Induction History of Present Illness Priya Mercedes is a 26 year old @ 39.0 weeks by LMP consistent with 6 wk US. Preg c/b cHTN off of meds, first TM bleeding, anxiety off of Citalopram, symptomatic cholelithiasis. The patient presented to labor and delivery for a scheduled induction of labor at 39.0 weeks due to worsening symptoms from her gallbladder. The goal is to get her delivered so that she can get her cholecystectomy done sooner. The patient is 3 cm dilated upon presentation to OB. The patient has some mild right upper quadrant pain at this time and nausea with eating greasy foods. Currently she does not have any nausea or vomiting. She denies fevers, chest pain, cough, leaks fluid, vaginal bleeding, dysuria. Review of Systems Narrative: See HPI Medications/Allergies Home Medications Medication Instructions Recorded Confirmed Last Taken Type cetirizine 10 mg tablet (Zyrtec) 10 mg PO BEDTIME 08/27/21 06/10/22 06/09/22 History vit no.95-ferrous 1 tab PO DAILY 10/29/21 06/10/22 06/09/22 History fumarate 28 mg-folic acid 800 mcg tablet ( Multivitamins) ondansetron 8 mg disintegrating 8 mg PO Q8H PRN nausea and 04/09/22 06/10/22 06/09/22 Rx tablet vomiting #30 tabs Allergies Allergy/AdvReac Type Severity Reaction Status Date / Time No Known Allergies Allergy Verified 04/09/22 08:14 PFSH Acute PFSH: Medical History Contraceptive use Encounter for dietary treatment of hypertension HTN (hypertension) Psychiatric care Family History Father Hypertension Grandmother Hypertension H/O coronary angiogram with stents Hx of CABG Social History Smoking and tobacco status: never smoked Female Reproductive History: : 1 Vitals/I&O/Wt Last Vital Signs Pulse 83 06/10/22 08:49 BP 124/73 06/10/22 08:49 Weight last 48 hrs Weight 186 lb Physical Exam Narrative: General: Alert and oriented x3 Eyes: Pupils equal round and reactive to light and accommodation Mouth: Mucous membranes moist, pharynx non-erythematous Cardiac: Regular rate and rhythm without murmurs Lungs: Clear to auscultation bilaterally without wheezes, crackles or rhonchi Abdomen: Soft, non-tender, fundus consistent with gestational age Extremities: Trace edema in the bilateral lower extremities Data 06/10/22 08:20 A&P Assessment and plan (1) Supervision of normal intrauterine in primigravida: Initially there was concern that the 's face was a presenting part, however on bedside ultrasound the top of the head had moved down to be the presenting part and the concern for a hand in the way showed that the hand had moved down to the face and the arm was not in the way. We will proceed with induction of labor using IV Pitocin starting at 2 units every 30 minutes. heart tones are currently in the mid 140s with moderate variability and good accelerations with a category 1 tracing. The patient is GBS negative. All questions were answered. The patient is in agreement with the current plan of care. (2) Cholelithiasis affecting , antepartum: The patient is currently stable, however this will need to be addressed after delivery. This will likely happen as an outpatient and not during this hospitalization. Attestations Medical Necessity Statement*: Patient will be here for greater than 2 midnights due to routine intrapartum and management of labor and delivery. Coding Level of Care Code Acute Code for Chg Fwd Diagnoses Supervision of normal intrauterine in primigravida Z34.00 Cholelithiasis affecting , antepartum O26.619; K80.20
[2022-06-10] MEDS: dextrose 5%-lactated ringers 1,000 ML 125 ML IV (09:11)
[2022-06-10] MEDS: lactated ringers 1,000 ML 999 ML IV (14:18)
--- NOTE | 2022-06-10 15:15 | ANES.PAUD2 ---
Documented by User: Amado Edwards CRNA 06/10/22 15:15 Pre-Anesthetic Update Pre-Anesthetic Assessment: Date of Surgery/Procedure: 06/10/22 Preop Diagnosis: IUP Any changes to Pre-Anesthetic Assessment?: No Labs Last 48hrs: Short CBC 06/10/22 Range/Units 08:20 WBC 10.1 H (4.0-10.0) 10^3/ uL Hgb 11.3 L (11.5-15.3) g/dL Hct 34.3 L (37.0-47.0) % MCV 87.1 (81-99) fl Plt Count 208 (130-400) 10^3/c mm Neut % (Auto) 70.4 % Neut # (Auto) 7.14 (1.8-7.7) 10^3/u L Blood Bank 06/10/22 08:19 Blood Type O Positive Rho(D) Type Positive Antibody Screen Negative Vitals: Temperature 97.2 F L 06/10/22 13:19 Pulse Rate 88 06/10/22 15:12 Pulse Rhythm 06/10/22 08:15 Pulse Strength 3+ Normal 06/10/22 08:15 Respiratory Rate 18 06/10/22 10:10 Respiratory Effort Non-Labored 06/10/22 08:15 Blood Pressure 128/73 06/10/22 15:12 Pulse Oximetry 100 06/10/22 15:05 Oxygen Delivery Me thod 06/10/22 08:15 Exam: Pre-Anes Outpt Exam: alert, oriented x 3, clear to auscultation bilaterally and regular rate & rhythm Cardiac Studies: No Data to Display Documented by User: Chris Mcdonald 06/11/22 10:38 Pre-Anesthetic Update Pre-Anesthetic Assessment: Date of Surgery/Procedure: 06/11/22 Cardiac Studies: No Data to Display
--- NOTE | 2022-06-10 15:52 | ANES.PROC ---
Documented by User: Amado Edwards CRNA 06/10/22 15:52 Anesthesia Procedures Procedure/Date: 06/10/22 epidural Procedure Narrative: epidural complete, bolus given, epidural pump initiated with NURSERY LABORER education given, vitals taken during procedure using OBIX system and satisfactory throughout, patient admits to decrease pain, report of procedure to OB RN Epidural: Time Out Performed: Yes Consents Signed: Procedure Consent Consent: requested by attending/covering physician, from patient, risks and benefits reviewed and patient agrees to proceed Lumbar Level: L3-L4 Epidural position: sitting Epidural procedure: sterile prep of area, 1% lidocaine to numb the area (3 mL), 18 g needle, negative for paresthesia passed, neg for paresthesia, test dose given, 1.5% xylocaine 1:200k epi (5 mL), 0.2% Ropivacaine bolus ml (5 mL), placed PCEA, no systemic response, sterile dressing applied, L.U.D. no apparent complications and 0.2% Ropiavacaine @ mls/hr (13 mL/hr) Documented by User: Chris Mcdonald 06/11/22 10:38 Anesthesia Procedures Procedure/Date: 06/11/22
--- NOTE | 2022-06-10 18:41 | P.PCNOB_ITS ---
Delivery Note: Date of delivery: June 10, 2022 Pre-delivery diagnoses: 1. Intrauterine at 39.0 weeks gestation 2. Chronic hypertension off of medications currently 3. First trimester bleeding 4. Anxiety off of citalopram 5. Symptomatic cholelithiasis Post-delivery diagnoses: 1. Intrauterine status post spontaneous vaginal delivery at 39.0 weeks gestation 2. Chronic hypertension off of medications currently 3. First trimester bleeding 4. Anxiety off of citalopram 5. Symptomatic cholelithiasis 6. Delivery of healthy infant male weighing 7 pounds 3 ounces with Apgars of 8 and 9 7. Vaginal laceration with repair Procedure: 1. Spontaneous vaginal delivery 2. Repair of right periurethral laceration, right vaginal wall laceration and perineal laceration. Delivering Physician: Richar Pulido MD Estimated blood loss (mL): 300 Findings: 1. Healthy male weighing 7 pounds 3 ounces with Apgars of 8 and 9 2. Intact placenta with central umbilical cord insertion site Pre-Delivery Course: Priya Mercedes is a 26 year old G1 now P1 status post spontaneous vaginal delivery @ 39.0 weeks by LMP consistent with 6 wk US. Preg c/b cHTN off of meds, first TM bleeding, anxiety off of Citalopram, symptomatic cholelithiasis. The patient presented to labor and delivery on the morning of 06/10/2022 for a scheduled induction of labor at 39.0 weeks due to worsening symptoms from her gallbladder with the intent to get her delivered and be able to have her gallbladder removed sooner. This is technically an elective delivery at 39.0 weeks gestation. The patient was 3 cm dilated upon presentation to OB. The patient was started on IV Pitocin at 2 units every 30 minutes at approximately 9 AM and this was gradually increased until she started having regular contractions. The patient made good change and by 1538 on 06/10/2022 she was 5 cm with a bulging bag of fluid. AROM was performed by myself and clear fluid was noted. The patient continued to make good change and was complete by 1703 on 06/10/2022. Delivery: The patient began pushing at 1720 on 06/10/2022. The patient pushed well and the infant descended quickly. The infant delivered in the OA position at 1735 on 06/10/2022. There was no nuchal cord. The left shoulder was anterior shoulder and it delivered with downward pressure. The rest of the infant delivered without complication. The was crying immediately upon delivery. The infant's mouth and nose were bulb suctioned by myself and the infant was placed on the mother's chest where the nurses were waiting to care for him. The cord was clamped by myself after approximately 1 minute and the infant's father cut the cord. Cord blood was then obtained and the umbilical cord was then drained of blood and traction was placed. Uterine massage was carried out and the placenta delivered without complication at 1740 on 06/10/2022. The placenta was noted to be intact with a central umbilical cord insertion site. Pitocin was bolused. The cervix was inspected and no lacerations were noted. The vaginal wall was inspected and 3 lacerations were noted. The first was in the right periurethral region and was bleeding heavily. 3-0 Vicryl was used in a running fashion to repair this tear. Bleeding was controlled with this. Another laceration was noted on the right vaginal wall that was also bleeding heavily. This was repaired using 3-0 Vicryl in a running fashion. A third laceration was noted in the perineal region that did not extend to the rectum. It was second-degree in nature. This was repaired in a running fashion without complication. A rectal exam was done and no sutures were noted in the rectal vault. The patient had good rectal tone considering her epidural. The uterus was massaged and noted to be firm and midline. Bleeding is minimal at this time. Currently both the mother and infant are doing well at this time. History History History 1 Term 1 0 Miscarriages/Ectopic 0 Living Children 1 Past Pregnancies Del. Date GA/Weeks Outcome Route Wt Inf Gender Labor Lgth Comp. Anesth esia Location 06/10/22 39 live - full term Vaginal 7 lb 3 oz Male 8 hrs Precipitous Delivery [facility] Delivery Date: 06/10/22 Last Updated by: Richar Pulido MD Quick delivery, induction due to symptomatic cholelithiasis, 2nd degree vaginal tear. A&P Assessment and plan (1) Spontaneous vaginal delivery: Coding Level of Care Code Acute Code for Chg Fwd Diagnoses Spontaneous vaginal delivery O80
[2022-06-10] MEDS: acetaminophen 325 mg Tablet 650 MG PO (19:19)
[2022-06-10] MEDS: ibuprofen 800 mg tablet PO (22:14)
[2022-06-11] VITALS: BP 109/70; PULSE 94; RESP 13; O2SAT 98
[2022-06-11 02:00] VITALS: BP 125/79; PULSE 95; RESP 14; TEMP 36.9
[2022-06-11 04:00] VITALS: BP 126/81; PULSE 95; RESP 14
[2022-06-11] MEDS: acetaminophen 325 mg Tablet 650 MG PO (04:19)
[2022-06-11 06:47] LABS: Hematocrit 24.7 % (37.0-47.0); Hemoglobin 7.9 g/dL (11.5-15.3); Mean Corpuscular Hemoglobin 28.1 pg (28.0-34.0); Mean Corpuscular Volume 87.9 fl (81-99); Mean Platelet Volume 10.7 fL (7.4-10.4); Platelet Count 176 10^3/cmm (130-400); Red Blood Count 2.81 10^6/uL (4.1-5.3); Red Cell Distribution Width 13.4 % (12.1-15.1); White Blood Count 16.2 10^3/uL (4.0-10.0)
[2022-06-11] MEDS: ibuprofen 800 mg tablet PO ×3 (07:54→20:26)
[2022-06-11] MEDS: docusate sodium 100 mg Capsule PO ×2 (07:54→17:19)
[2022-06-11 08:00] VITALS: BP 124/80; PULSE 95; RESP 18; TEMP 36.9
--- NOTE | 2022-06-11 09:27 | P.PN_ITS ---
Subjective Subjective: The patient is doing well today. She is ambulating, voiding, passing gas and tolerating food by mouth. She has not had any episodes of dizziness since having a presyncopal episode approximately an hour and a half after delivery. During that episode, she was given IV fluids as a bolus and she improved quickly. Vitals/I&O/Wt Last Vital Signs Temp 98.5 F 06/11/22 02:00 Pulse 95 06/11/22 04:00 Resp 14 06/11/22 04:00 BP 126/81 06/11/22 04:00 Pulse Ox 98 06/11/22 00:00 O2 Del Method 06/11/22 00:00 06/10/22 06/11/22 06/11/22 22:59 06:59 14:59 Intake Total 58.667 / 303.782 9024.333 / 2525.000 Output Total 300 / 300 Balance -241.333 / -024.315 0416.333 / 2225.000 Weight last 48 hrs Weight 186 lb Physical Exam Narrative: General: Alert and oriented x3 Cardiac: Regular rate and rhythm without murmurs Lungs: Clear to auscultation bilaterally without wheezes, crackles or rhonchi Abdomen: Soft, mild tenderness over uterus. The uterus is firm and 2 cm below the umbilicus. Extremities: Trace edema in the bilateral lower extremities Urinary Catheter Management: Holcomb Latex: Cath Placed During This Visit: yes, but has since been removed by the nurse Reason for Continuing Indwelling Catheter: Decision to DC Catheter Urinary Catheter Date of Insertion: 06/10/22 Urinary Catheter Time of Insertion: 15:45 Date Urinary Catheter Removed: 06/10/22 Time Urinary Catheter Discontinued: 17:15 Data 06/11/22 06:35 A&P Assessment and plan (1) Spontaneous vaginal delivery: The patient is doing well status post spontaneous vaginal delivery on 06/10/2022. She had an episode of presyncope that was associated with hypotension about an hour and half after delivery. The patient recovered quickly with an IV fluid bolus. This thought that it was a vasovagal episode. She is doing well at this time. Discussed precautions for ambulation. Discussed routine instructions. We will continue to follow and plan for discharge home tomorrow a s long as everything goes well. Attestations Medical Necessity Statement*: The patient will be here for greater than 2 midnights due to routine intrapartum and management of labor and delivery. Coding Level of Care Code Acute Code for Chg Fwd Diagnoses Spontaneous vaginal delivery O80
--- NOTE | 2022-06-11 10:38 | ANE.PACU2 ---
Inpatient post-anesthesia follow up: Airway intact: Yes Vital signs: Temperature 98.5 F Pulse Rate 95 Respiratory Rate 14 Blood Pressure 126/81 Pulse Oximetry 98 Oxygen Delivery Me thod Room Air Oxygen Flow Rate Fraction of Inspir ed Oxygen Hydration adequate: Yes Nausea and vomiting: No Pain level: 2 Mental status: Baseline
[2022-06-11 14:58] VITALS: BP 138/87; PULSE 97; RESP 18; TEMP 36.9
[2022-06-11] MEDS: ferrous sulfate EC 325 mg Tablet PO (20:26)
[2022-06-11] MEDS: benzocaine-menthol 78 gm Canister 1 SPRAY TOPICAL (20:26)
[2022-06-11 21:40] VITALS: BP 129/81; PULSE 103; RESP 17; TEMP 37.2
[2022-06-12 04:56] VITALS: BP 119/82; PULSE 87; RESP 16; TEMP 36.7
--- NOTE | 2022-06-12 07:57 | PM.DCS ---
Discharge Providers Date of Admission: 06/10/22 08:02 Date of Discharge: June 12, 2022 Attending Provider at Admission: Richar Pulido MD Attending Provider at Discharge: Richar Pulido MD Primary Care Provider: IVANIA Gonzales Diagnoses at Discharge Discharge Diagnosis (1) Spontaneous vaginal delivery: Status: Acute Other Information Additional DC diagnoses/information: 1.? Intrauterine status post spontaneous vaginal delivery at 39.0 weeks gestation 2.? Chronic hypertension off of medications currently 3.? First trimester bleeding 4.? Anxiety off of citalopram 5.? Symptomatic cholelithiasis 6.? Delivery of healthy infant male weighing 7 pounds 3 ounces with Apgars of 8 and 9 7.? Vaginal laceration with repair ? Reason for Visit Reason for Visit: Induction Brief History: Priya Mercedes is a 26 year old G1 now P1 status post spontaneous vaginal delivery @ 39.0 weeks by LMP consistent with 6 wk US. Preg c/b cHTN off of meds, first TM bleeding, anxiety off of Citalopram, symptomatic cholelithiasis. The patient presented to labor and delivery on the morning of 06/10/2022 for a scheduled induction of labor at 39.0 weeks due to worsening symptoms from her gallbladder with the intent to get her delivered and be able to have her gallbladder removed sooner.? This is technically an elective delivery at 39.0 weeks gestation. The patient was 3 cm dilated upon presentation to OB. Delivering Physic miky: Richar Pulido MD? Estimated bl ood loss (mL): 300 ? Findings: 1.? H ealthy infant male weighing 7 pounds 3 ounces with Apg ars of 8 and 9 2. ? Intact placenta with central umbil ical cord insertio n site Pre-Delivery Cours e:?? Delivery:?? Hospital Course Hospital Course The patient was started on IV Pitocin at 2 units every 30 minutes at approximately 9 AM and this was gradually increased until she started having regular contractions.? The patient made good change and by 1538 on 06/10/2022 she was 5 cm with a bulging bag of fluid.? AROM was performed by myself and clear fluid was noted.? The patient continued to make good change and was complete by 1703 on 06/10/2022. The patient began pushing at 1720 on 06/10/2022.? The patient pushed well and the descended quickly.? The delivered in the OA position at 1735 on 06/10/2022.? There was no nuchal cord.? The left shoulder was anterior shoulder and it delivered with downward pressure.? The rest of the delivered without complication.? The was crying immediately upon delivery.? The patient had second degree right kaia-urethral, right vaginal wall and perineal lacerations. These were repaired without complication. She did have a moderate amount of blood loss related to these. She did have a pre-syncopal episode after delivery that quickly resolved with positioning and IV fluid bolus. The patient is doing well and is having no complications at this time. She is ambulating, voiding, passing gas and tolerating food by mouth. Routine discharge instructions were discussed. The patient's questions were answered. The patient is in agreement with current plan of care. Physical Exam Narrative: General: Alert and oriented x3 Cardiac: Regular rate and rhythm without murmurs Lungs: Clear to auscultation bilaterally without wheezes, crackles or rhonchi Abdomen: Soft, mild tenderness over uterus. The uterus is firm and 2 cm below the umbilicus. Extremities: Trace edema in the bilateral lower extremities Urinary Catheter Management: Holcomb Latex: Cath Placed During This Visit: yes, but has since been removed by the nurse Reason for Continuing Indwelling Catheter: Decision to DC Catheter Urinary Catheter Date of Insertion: 06/10/22 Urinary Catheter Time of Insertion: 15:45 Date Urinary Catheter Removed: 06/10/22 Time Urinary Catheter Discontinued: 17:15 Discharge Data Studies Completed and Pending Completed Studies During Hospitalization Category Date Time Status US OB limited [id number] Stat Ultrasound 06/10/22 08:38 Completed Radiology Impressions Obstetrics Ultrasound 06/10/22 08:38 IMPRESSION: 1. Vertex position. 2. Normal amniotic fluid. Laboratory Results WBC 16.2 10^3/uL (4.0-10.0) H 06/11/22 06:35 RBC 2.81 10^6/uL (4.1-5.3) L 06/11/22 06:35 Hgb 7.9 g/dL (11.5-15.3) L D 06/11/22 06:35 Hct 24.7 % (37.0-47.0) L 06/11/22 06:35 MCV 87.9 fl (81-99) 06/11/22 06:35 MCH 28.1 pg (28.0-34.0) 06/11/22 06:35 MCHC 32.0 g/dL (30.0-36.0) 06/11/22 06:35 RDW 13.4 % (12.1-15.1) 06/11/22 06:35 Plt Count 176 10^3/cmm (130-400) 06/11/22 06:35 MPV 10.7 fL (7.4-10.4) H 06/11/22 06:35 Neut % (Auto) 70.4 % 06/10/22 08:20 Lymph % (Auto) 18.7 % 06/10/22 08:20 [place] % (Auto) 8.2 % 06/10/22 08:20 Eos % (Auto) 1.1 % 06/10/22 08:20 Baso % (Auto) 0.4 % 06/10/22 08:20 Neut # (Auto) 7.14 10^3/uL (1.8-7.7) 06/10/22 08:20 Lymph # (Auto) 1.9 10^3/uL (0.8-4.8) 06/10/22 08:20 [place] # (Auto) 0.8 10^3/uL (0.2-0.9) 06/10/22 08:20 Eos # (Auto) 0.1 10^3/uL (0.0-0.8) 06/10/22 08:20 Baso # (Auto) 0.0 10^3/uL (0.0-0.1) 06/10/22 08:20 Nucleated RBC % (auto) 0 % 06/10/22 08:20 Nucleated RBCs # 0.0 /100WBC 06/10/22 08:20 Blood Type O Positive 06/10/22 08:19 Rho(D) Type Positive 06/10/22 08:19 Antibody Screen Negative 06/10/22 08:19 Vitals Last Vital Signs Temp 98.1 F 06/12/22 04:56 Pulse 87 06/12/22 04:56 Resp 16 06/12/22 04:56 BP 119/82 06/12/22 04:56 Pulse Ox 98 06/11/22 00:00 O2 Del Method 06/11/22 00:00 Discharge Plan Discharge Patient Disposition: Home Condition: Good Prescriptions: New ferrous sulfate 325 mg (65 mg iron) Tablet,Delayed Release (Dr/Ec) 325 mg PO TIDWM Qty: 60 0RF ibuprofen 800 mg Tablet 800 mg PO TID Qty: 40 0RF Continued cetirizine [Zyrtec] 10 mg tablet 10 mg PO BEDTIME ondansetron 8 mg tablet,disintegrating 8 mg PO Q8H PRN (Reason: nausea and vomiting) Qty: 30 4RF PNV cmb#95-ferrous fumarate-FA [ Multivitamins] 28 mg iron- 800 mcg Tablet 1 tab PO DAILY Discharge Orders: Discharge Order (Routine); Ordered 06/12/22 Ordered By: Richar Pulido Referrals: Richar Pulido MD [Physician] - 6 Weeks Discharge Diet: Regular Discharge Activity: Increase activity as tolerated Patient Instructions: Opioid Safety Activity Restrictions/Additional Instructions: Nothing per vagina for 6 weeks. I recommend showers instead of baths for the next 6 weeks. Discharge Attestations Time Spent in Discharge Care*: greater than 30 min Quality Metrics Clinical Quality Measures [ No reported AMI, CVA or VTE this stay] Coding Level of Care Code Acute Chg FW DC note Diagnoses Spontaneous vaginal delivery O80
[2022-06-12] MEDS: prenatal vitamin Capsule 1 CAP PO (08:26)
[2022-06-12] MEDS: docusate sodium 100 mg Capsule PO (08:26)
[2022-06-12] MEDS: ibuprofen 800 mg tablet PO (08:26)
[2022-06-12] MEDS: ferrous sulfate EC 325 mg Tablet PO (09:18)
[2022-06-12 10:00] VITALS: BP 128/78; PULSE 124; RESP 16; TEMP 36.8; O2SAT 98
== END 2022-06-12 10:00 | disposition home or self-care (01) | DRG 807 ==
LOC: OPOB 08:10 → OBGYN 08:11 → OPOB 17:42 → OBGYN 17:42
PROVIDERS: Admitting Provider Family Medicine; PCP Nurse Practitioner Family; Visit Provider Family Medicine
DX: O99.62 Diseases of the digestive system complicating childbirth (principal); Z37.0 Single live birth; K80.20 Calculus of gallbladder without cholecystitis without obstruction; O10.02 Pre-existing essential hypertension complicating childbirth; O99.344 Other mental disorders complicating childbirth; O70.1 Second degree perineal laceration during delivery; Z3A.39 39 weeks gestation of pregnancy; F41.9 Anxiety disorder, unspecified
CPT/HCPCS: 36415; 51702; 59025; 59409; 76815; 85025; 85027; 86850; 86900; 99211; J2590; J2795; J7120; J7121

== ENCOUNTER → 2022-06-28 13:34 | Outpatient (BNVA) | payer OTHER, SELFPAY | PROVIDERS: PCP Nurse Practitioner Family; Visit Provider Family Medicine | DX: R30.0 Dysuria (principal) | CPT/HCPCS: 87086 ==

== ENCOUNTER 2022-07-15 09:54 | Day surgery (SDC) | payer OTHER, SELFPAY ==
[2022-07-12 08:52] VITALS: BMI 29.0
[2022-07-15] VITALS (14 sets, daily range): BP systolic 146–168; BP diastolic 81–111; PULSE 58–94; RESP 10–18; TEMP 36.1–36.7; O2SAT 97–100
[2022-07-15] MEDS: sodium chloride 0.9% 1,000 ML 30 ML IV (10:19)
--- NOTE | 2022-07-15 11:39 | ANES.PREANE2 ---
Pre-Anesthetic Assessment Height/Weight: Height 1.6 m Weight 74.389 kg Temp Pulse Resp BP Pulse Ox O2 Del Method 97 F L 94 18 148/102 97 07/15/22 10:10 07/15/22 10:10 07/15/22 10:10 07/15/22 10:10 07/15/22 10:10 07/15/22 10:14 Preop Diagnosis: Symptomatic cholelithiasis Operation Date: 07/15/22 12:50 Proposed Procedures p Laparoscopic Cholecystectomy 98350,K80.20(Not Applicable) - Herson Arias DO Familial anesthetic complications: None Was Beta Raquel taken within 24 hours: N/A Was Clonidine taken within 24 hours: N/A Last intake: Intake Last Liquid Date 07/14/22 Last Liquid Time 22:00 Last Solid Date 07/14/22 Last Solid Time 19:30 Social No alcohol and No tobacco Exam alert, oriented x 3, clear to auscultation bilaterally and regular rate & rhythm Airway Mallampati: Class II Dentition: full CV/HEM Hypertension Anesthetic Plan ASA status: 2 Anesthesia: General Risk of > 500 ml blood loss (7ml/kg in children): No Medications/Allergies Home Medications Medication Instructions Recorded Confirmed Last Taken Type cetirizine 10 mg tablet (Zyrtec) 10 mg PO BEDTIME 08/27/21 07/15/22 07/14/22 History vit no.95-ferrous 1 tab PO DAILY 10/29/21 07/12/22 07/03/22 History fumarate 28 mg-folic acid 800 mcg tablet ( Multivitamins) ondansetron 8 mg disintegrating 8 mg PO Q8H PRN nausea and 04/09/22 07/12/22 07/10/22 Rx tablet vomiting #30 tabs citalopram 10 mg tablet 10 mg PO BEDTIME 07/02/22 07/12/22 07/14/22 History ibuprofen 800 mg tablet 800 mg PO TID PRN Pain 07/12/22 07/12/22 07/10/22 History Allergies Allergy/AdvReac Type Severity Reaction Status Date / Time No Known Allergies Allergy Verified 07/15/22 10:04 Current Medications Generic Name Dose Route Start Last Admin Trade Name Freq PRN Reason Stop Dose Admin Sodium Chloride 1,000 mls @ 30 mls/hr 07/15/22 10:00 07/15/22 10:19 Sodium Chloride 0.9% IV 07/16/22 09:59 30 mls/hr .Q24H PRIMO Administration PFSH Anesthesia Medical History Contraceptive use Encounter for dietary treatment of hypertension HTN (hypertension) Psychiatric care Family History Father Hypertension Grandmother Hypertension H/O coronary angiogram with stents Hx of CABG Social History Smoking and tobacco status: never smoked Data Anesthesia Cardiac Studies: No Data to Display
--- NOTE | 2022-07-15 13:41 | W.PM.OPSUD ---
Surgery/Procedure H&P Update DATE OF PROCEDURE: July 15, 2022 DATE H&P PERFORMED: 07/02/22 H&P UPDATE INFORMATION: I have reviewed H&P completed within last 30 days, I have examined patient prior to procedure and No changes to prior documentation PREOP DIAGNOSIS: Symptomatic cholelithiasis PLANNED PROCEDURE: Operation Date: 07/15/22 12:50 Proposed Procedures p Laparoscopic Cholecystectomy 22782,K80.20(Not Applicable) - Herson Arias DO
[2022-07-15] MEDS: ceFAZolin 2,000 MG in sodium chloride 0.9% (plus) 50 ML 100 MG IV (14:03)
[2022-07-15] MEDS: lidocaine-epi 2% 20 mL INJ INJECTION (14:18)
--- NOTE | 2022-07-15 14:43 | P.OP_ITS ---
Operative Report Date of procedure: July 15, 2022 Pre-op diagnosis: Preop Diagnosis Symptomatic cholelithiasis Post-op diagnosis: same Procedure done: Laparoscopic cholecystectomy Specimens removed/disposition: Gallbladder Surgeon: Dr. Herson Arias DO Anesthesia: General Estimated blood loss (mL): 5 Complications: None apparent Brief History: This is a very pleasant 27-year-old female who presented to my office with symptomatic cholelithiasis. Laparoscopic cholecystectomy was indicated. The risk and benefits were explained and documented. Procedure: Patient was wheeled into the operative room and placed on the OR table in a supine position. Abdomen was inspected prepped and draped in usual sterile fashion. Time-out was performed and all present were in agreement. A 15 blade scalp was used to make a stab incision in the left upper quadrant and intra- abdominal insufflation was achieved using a Veress needle. After localizing the tissue incisions were made and a 5 millimeter trocar was placed into the umbilicus as well as 2 in the right upper quadrant. A 12 millimeter trocar was placed in the epigastrium. Gallbladder was grasped and elevated. The triangle of Calot was carefully dissected using blunt dissection and electrocautery until the triangle of Calot clearly identified. The cystic duct was clipped proximally and double clipped distally. The duct was then ligated proximally. The cystic artery was doubly clipped and ligated. The gallbladder was then removed from the liver bed using electrocautery. The gallbladder was removed from the abdomen using an Endo-Catch bag through the epigastric incision. The liver bed was inspected and no bleeding was seen. The abdomen was irrigated and suctioned. The epigastric port was closed with an 0 Vicryl and Aramis-Jeanine in a [id number] fashion. All ports removed. Skin was washed and dried. Incisions were closed with 4-0 Monocryl in a subcuticular interrupted fashion. Skin glue was applied. Patient tolerated the procedure well.
[2022-07-15] MEDS: fentaNYL 50 mcg/mL INJ 2mL IVP (15:39)
[2022-07-15] MEDS: ondansetron 2 mg/ML SDV 2 mL 4 MG IVP (15:43)
--- NOTE | 2022-07-15 16:00 | ANE.PACU2 ---
Inpatient post-anesthesia follow up: Airway intact: Yes Vital signs: Temperature 97.9 F Pulse Rate 71 Respiratory Rate 14 Blood Pressure 149/99 Pulse Oximetry 99 Oxygen Delivery Me thod Room Air Oxygen Flow Rate 8 Fraction of Inspir ed Oxygen Hydration adequate: Yes Nausea and vomiting: No Pain level: 1 Mental status: Baseline
[2022-07-15] MEDS: HYDROcodone-acetaminophen 7.5-325 mg Tablet 1 TAB PO (16:22)
== END 2022-07-15 16:55 | disposition home or self-care (01) ==
PROVIDERS: PCP Nurse Practitioner Family; Visit Provider Surgery
PROC: 0FT44ZZ Resection of Gallbladder, Percutaneous Endoscopic Approach (ICD-10-PCS; CPT 47562; principal; 2022-07-15 12:40)
DX: K80.10 Calculus of gallbladder with chronic cholecystitis without obstruction (principal); I10 Essential (primary) hypertension
CPT/HCPCS: 47562; 81025; 88304; J0690; J1100; J1885; J2250; J2405; J2704; J2710; J3010; J3490; J7030

== ENCOUNTER → 2023-07-10 10:23 | Outpatient (BNVA) | payer OTHER, SELFPAY | PROVIDERS: PCP Family Medicine; Visit Provider Registered Nurse Neonatal Intensive Care | DX: J02.9 Acute pharyngitis, unspecified (principal); R50.9 Fever, unspecified | CPT/HCPCS: 87400; 87880 ==

== ENCOUNTER 2023-11-02 18:33 | Observation (INO) | payer OTHER, SELFPAY ==
[2023-11-02 18:38] VITALS: BP 133/82; PULSE 95; RESP 17; TEMP 36.8; O2SAT 98; BMI 28.8
--- NOTE | 2023-11-02 18:49 | CTR_ITS ---
PROCEDURE INFORMATION: Exam: CT Abdomen And Pelvis With Contrast Exam date and time: 11/02/2023 7:19 PM Age: 28 years old Clinical indication: Abdominal pain; Localized; Right lower quadrant (rlq); Prior surgery; Surgery date: 6+ months; Surgery type: Gb; Patient HX: C/O rlq pain TECHNIQUE: Imaging protocol: Computed tomography of the abdomen and pelvis with contrast. Radiation optimization: All CT scans at this facility use at least one of these dose optimization techniques: automated exposure control; mA and/or kV adjustment per patient size (includes targeted exams where dose is matched to clinical indication); or iterative reconstruction. Contrast material: OMNI 350; Contrast volume: 100 ml; Contrast route: INTRAVENOUS (IV); COMPARISON: OB limited [id number] 06/10/2022 8:48 AM RADIATION DOSE METRICS: Total DLP (mGy-cm): 516.2 FINDINGS: Liver: Normal. No mass. Gallbladder and biliary ducts: The gallbladder has been removed. Pancreas: Normal. No ductal dilation. Spleen: Normal. No splenomegaly. Adrenal glands: Normal. No mass. Kidneys and ureters: Normal. No hydronephrosis. Stomach and bowel: Unremarkable. No obstruction. No mucosal thickening. Appendix: Appendix is thickened measuring 10 mm associated with mild periappendiceal inflammatory stranding. No free intraperitoneal air or periappendiceal abscess formation. Intraperitoneal space: There is a small amount of free intraperitoneal fluid in the pelvis. Vasculature: Unremarkable. No abdominal aortic aneurysm. Lymph nodes: Unremarkable. No enlarged lymph nodes. Urinary bladder: Unremarkable as visualized. Reproductive: Unremarkable as visualized. Bones/joints: Unremarkable. No acute fracture. Soft tissues: Tiny fat containing umbilical hernia. CT/CT abdomen pelvis w con* [id number] IMPRESSION: Findings consistent with acute appendicitis.
--- NOTE | 2023-11-02 18:55 | ED_ITS ---
Documented by User: IVANIA Lombardo 11/02/23 21:24 HPI - Abdominal Pain 2 General: Chief Complaint: Abdominal Pain Stated Complaint: right abd pain low urgent care sent Time Seen by Provider: 11/02/23 18:49 History of Present Illness: 28-year-old female comes in today with a bdominal pain localizing to right lower quadrant. Patient reports pain started last night. Patient's had no fever. Patient has only 1 episode of vomiting. Patient is presently on her last menstrual cycle. Patient been able to eat very little today and has only taken food and when she is taken some Tylenol. Patient denies any chronic medical problems. Patient had gallbladder surgery last year. Review of Systems 2 General: Reports: 10 or more systems reviewed and unremarkable except in HPI and below GI: Reports: abdominal pain PFSH ED 2 PFSH: Medical History Encounter for dietary treatment of hypertension Contraceptive use HTN (hypertension) Surgical History History of laparoscopic cholecystectomy History of cholecystectomy 07/15/22 - [place] Family History Father Hypertension Grandmother Hypertension H/O coronary angiogram with stents Hx of CABG Social History Smoking and tobacco/nicotine status: never used tobacco/nicotine Physical Exam 2 Const: COMMON NORMALS: alert HENMT: COMMON NORMALS: normocephalic HEAD & SCALP: normocephalic Neck/C-Spine: COMMON NORMALS: full ROM Resp: COMMON NORMALS: normal respiratory effort and clear to auscultation bilaterally AUSCULTATION: clear to auscultation bilaterally Cardio: COMMON NORMALS: regular rate and regular rhythm RATE: regular rate RHYTHM: regular rhythm GI: COMMON NORMALS: Soft to palpation PALPATION: Yes Soft to palpation, Yes Tenderness to palpation present (GI) Details: RLQ, Yes Guarding due to palpation present (GI) and Yes Rebound tenderness present : COMMON NORMALS: Yes no CVA tenderness BLADDER/KIDNEY EXAM: Yes no CVA tenderness Back/Pelvis: COMMON NORMALS: no CVA tenderness Extremity: COMMON NORMALS: normal to inspection Neuro: SENSORIUM/ORIENTATION: Yes alert Skin: COMMON NORMALS: turgor normal GENERAL SKIN EXAM: turgor normal Course 2 Vital Signs: Vital signs: Vital Signs Temperature 98.2 F 11/02/23 18:38 Pulse Rate 78 11/02/23 20:17 Respiratory Rate 16 11/02/23 20:17 Blood Pressure 126/89 11/02/23 20:17 Pulse Oximetry 100 11/02/23 20:17 Oxygen Delivery Me thod Room Air 11/02/23 20:17 MDM - Abdominal Pain Medical Decision Making 28-year-old female comes in today for right lower quadrant abdominal pain. On exam patient's abdomen is soft with some rebound tenderness noted. Patient is guarding. Bowel sounds are present. Skin is warm and dry. Vital signs are normal. Differential diagnosis appendicitis, urinary tract infection, constipation, renal calculi, diverticulitis. CBC noted a white count of 12,000, CRP was 80, CT of the abdomen pelvis had findings consistent with acute appendicitis. Reviewed exam with Dr. Arias, surgeon on-call, he agreed with plan for admission and evaluation in the morning for surgical removal of appendix. Patient was informed and agreed with plan. Dr. Lovett, attending ER physician, agreed to plan and placed admission orders. Lab Data 11/02/23 18:45 11/02/23 18:45 Labs/Radiology: Radiology Impressions Abdomen/Pelvis CT 11/02/23 18:49 IMPRESSION: Findings consistent with acute appendicitis. Laboratory Results WBC 12.78 10^3/uL (3.29-11.43) H 11/02/23 18:45 RBC 4.66 10^6/uL (3.85-5.65) 11/02/23 18:45 Hgb 13.00 g/dL (11.27-16.99) 11/02/23 18:45 Hct 40.1 % (36-47) 11/02/23 18:45 MCV 86.1 fl (85-98) 11/02/23 18:45 MCH 27.9 pg (27-33) 11/02/23 18:45 MCHC 32.4 g/dL (30-55) 11/02/23 18:45 RDW 12.3 % (12.1-15.1) 11/02/23 18:45 Plt Count 307 10^3/cmm (157-399) 11/02/23 18:45 MPV 10.4 fL (7.4-10.4) 11/02/23 18:45 Neut % (Auto) 75.6 % 11/02/23 18:45 Lymph % (Auto) 17.0 % 11/02/23 18:45 [place] % (Auto) 5.5 % 11/02/23 18:45 Eos % (Auto) 1.3 % 11/02/23 18:45 Baso % (Auto) 0.4 % 11/02/23 18:45 Neut # (Auto) 9.67 10^3/uL (1.8-7.7) H 11/02/23 18:45 Lymph # (Auto) 2.2 10^3/uL (0.8-4.8) 11/02/23 18:45 [place] # (Auto) 0.7 10^3/uL (0.2-0.9) 11/02/23 18:45 Eos # (Auto) 0.2 10^3/uL (0.0-0.8) 11/02/23 18:45 Baso # (Auto) 0.1 10^3/uL (0.0-0.1) 11/02/23 18:45 Nucleated RBC % (auto) 0 % 11/02/23 18:45 Nucleated RBCs # 0.0 /100WBC 11/02/23 18:45 Sodium 138 mmol/L (136-145) 11/02/23 18:45 Potassium 4.0 mmol/L (3.5-5.1) 11/02/23 18:45 Chloride 103 mmol/L (98-107) 11/02/23 18:45 Carbon Dioxide 24 mmol/L (22-29) 11/02/23 18:45 Anion Gap 15.0 (5-19) 11/02/23 18:45 BUN 8 mg/dL (6-20) 11/02/23 18:45 Creatinine 0.8 mg/dL (0.5-0.9) 11/02/23 18:45 GFR Calculation 84.8 mL/min (90-130) L 11/02/23 18:45 Glucose 121 mg/dL (65-115) H 11/02/23 18:45 Calculated Osmolality 286 mOsm/kg (285-295) 11/02/23 18:45 Calcium 8.9 mg/dL (8.5-10.5) 11/02/23 18:45 Total Bilirubin 0.3 mg/dL (0.15-1.2) 11/02/23 18:45 AST 15 U/L (0-32) 11/02/23 18:45 ALT 13 U/L (0-33) 11/02/23 18:45 Alkaline Phosphatase 104 U/L (35-105) 11/02/23 18:45 C-Reactive Protein 81.2 mg/L (0.0-4.9) H 11/02/23 18:45 Total Protein 7.8 g/dL (6.6-8.7) 11/02/23 18:45 Albumin 4.2 g/dL (3.5-5.2) 11/02/23 18:45 Globulin 3.6 g/dL (1.3-4.6) 11/02/23 18:45 Lipase 19 U/L (13-60) 11/02/23 18:45 HCG, Qual Negative (Negative) 11/02/23 18:45 All radiology interpretation(s) finalized by discharge Discharge Plan Discharge Patient Disposition: Admitted As Inpatient Admit Provider: Herson Arias Clinical Impression: Acute appendicitis Condition: Stable Coding Level of Care Code ED [employer] Jointer for Chg Fwd Documented by User: Austin Lovett DO 11/02/23 21:30 HPI - Abdominal Pain 2 General: Chief Complaint: Abdominal Pain Stated Complaint: right abd pain low urgent care sent Time Seen by Provider: 11/02/23 18:49 PFSH ED 2 PFSH: Medical History Encounter for dietary treatment of hypertension Contraceptive use HTN (hypertension) Surgical History History of laparoscopic cholecystectomy History of cholecystectomy 07/15/22 - [place] Family History Father Hypertension Grandmother Hypertension H/O coronary angiogram with stents Hx of CABG Social History Smoking and tobacco/nicotine status: never used tobacco/nicotine Course 2 Vital Signs: Vital signs: Vital Signs Temperature 98.2 F 11/02/23 18:38 Pulse Rate 78 11/02/23 20:17 Respiratory Rate 16 11/02/23 20:17 Blood Pressure 126/89 11/02/23 20:17 Pulse Oximetry 100 11/02/23 20:17 Oxygen Delivery Me thod Room Air 11/02/23 20:17 MDM - Abdominal Pain Medical Decision Making 28-year-old female comes in today for right lower quadrant abdominal pain. On exam patient's abdomen is soft with some rebound tenderness noted. Patient is guarding. Bowel sounds are present. Skin is warm and dry. Vital signs are normal. Differential diagnosis appendicitis, urinary tract infection, constipation, renal calculi, diverticulitis. CBC noted a white count of 12,000, CRP was 80, CT of the abdomen pelvis had findings consistent with acute appendicitis. Reviewed exam with Dr. Arias, surgeon on-call, he agreed with plan for admission and evaluation in the morning for surgical removal of appendix. Patient was informed and agreed with plan. Dr. Lovett, attending ER physician, agreed to plan and placed admission orders. This patient was originally seen by IVANIA Grubbs.? I agree with his history, evaluation, and treatment. Lab Data 11/02/23 18:45 11/02/23 18:45 Labs/Radiology: Radiology Impressions Abdomen/Pelvis CT 11/02/23 18:49 IMPRESSION: Findings consistent with acute appendicitis. Laboratory Results WBC 12.78 10^3/uL (3.29-11.43) H 11/02/23 18:45 RBC 4.66 10^6/uL (3.85-5.65) 11/02/23 18:45 Hgb 13.00 g/dL (11.27-16.99) 11/02/23 18:45 Hct 40.1 % (36-47) 11/02/23 18:45 MCV 86.1 fl (85-98) 11/02/23 18:45 MCH 27.9 pg (27-33) 11/02/23 18:45 MCHC 32.4 g/dL (30-55) 11/02/23 18:45 RDW 12.3 % (12.1-15.1) 11/02/23 18:45 Plt Count 307 10^3/cmm (157-399) 11/02/23 18:45 MPV 10.4 fL (7.4-10.4) 11/02/23 18:45 Neut % (Auto) 75.6 % 11/02/23 18:45 Lymph % (Auto) 17.0 % 11/02/23 18:45 [place] % (Auto) 5.5 % 11/02/23 18:45 Eos % (Auto) 1.3 % 11/02/23 18:45 Baso % (Auto) 0.4 % 11/02/23 18:45 Neut # (Auto) 9.67 10^3/uL (1.8-7.7) H 11/02/23 18:45 Lymph # (Auto) 2.2 10^3/uL (0.8-4.8) 11/02/23 18:45 [place] # (Auto) 0.7 10^3/uL (0.2-0.9) 11/02/23 18:45 Eos # (Auto) 0.2 10^3/uL (0.0-0.8) 11/02/23 18:45 Baso # (Auto) 0.1 10^3/uL (0.0-0.1) 11/02/23 18:45 Nucleated RBC % (auto) 0 % 11/02/23 18:45 Nucleated RBCs # 0.0 /100WBC 11/02/23 18:45 Sodium 138 mmol/L (136-145) 11/02/23 18:45 Potassium 4.0 mmol/L (3.5-5.1) 11/02/23 18:45 Chloride 103 mmol/L (98-107) 11/02/23 18:45 Carbon Dioxide 24 mmol/L (22-29) 11/02/23 18:45 Anion Gap 15.0 (5-19) 11/02/23 18:45 BUN 8 mg/dL (6-20) 11/02/23 18:45 Creatinine 0.8 mg/dL (0.5-0.9) 11/02/23 18:45 GFR Calculation 84.8 mL/min (90-130) L 11/02/23 18:45 Glucose 121 mg/dL (65-115) H 11/02/23 18:45 Calculated Osmolality 286 mOsm/kg (285-295) 11/02/23 18:45 Calcium 8.9 mg/dL (8.5-10.5) 11/02/23 18:45 Total Bilirubin 0.3 mg/dL (0.15-1.2) 11/02/23 18:45 AST 15 U/L (0-32) 11/02/23 18:45 ALT 13 U/L (0-33) 11/02/23 18:45 Alkaline Phosphatase 104 U/L (35-105) 11/02/23 18:45 C-Reactive Protein 81.2 mg/L (0.0-4.9) H 11/02/23 18:45 Total Protein 7.8 g/dL (6.6-8.7) 11/02/23 18:45 Albumin 4.2 g/dL (3.5-5.2) 11/02/23 18:45 Globulin 3.6 g/dL (1.3-4.6) 11/02/23 18:45 Lipase 19 U/L (13-60) 11/02/23 18:45 HCG, Qual Negative (Negative) 11/02/23 18:45 Discharge Plan Discharge Patient Disposition: Admitted As Inpatient Admit Provider: Herson Arias Clinical Impression: Acute appendicitis Condition: Stable Coding Level of Care Code ED [employer] Jointer for Ce Singletary
[2023-11-02 19:00] LABS: Basophils # 0.1 10^3/uL (0.0-0.1); Basophils % 0.4 %; Eosinophils # 0.2 10^3/uL (0.0-0.8); Eosinophils % 1.3 %; Hematocrit 40.1 % (36-47); Lymphocytes # 2.2 10^3/uL (0.8-4.8); Mean Corpuscular HGB Conc 32.4 g/dL (30-55); Mean Corpuscular Hemoglobin 27.9 pg (27-33); Mean Corpuscular Volume 86.1 fl (85-98); Mean Platelet Volume 10.4 fL (7.4-10.4); Monocytes # 0.7 10^3/uL (0.2-0.9); Monocytes % 5.5 %; Neutrophils # 9.67 10^3/uL (1.8-7.7); Neutrophils % 75.6 %; Nucleated Red Blood Cells % 0 %; Platelet Count 307 10^3/cmm (157-399); Red Blood Count 4.66 10^6/uL (3.85-5.65); Red Cell Distribution Width 12.3 % (12.1-15.1); White Blood Count 12.78 10^3/uL (3.29-11.43)
[2023-11-02 19:11] LABS: HCG, Serum Qual Negative (Negative)
[2023-11-02 19:18] LABS: Alanine Aminotransferase 13 U/L (0-33); Albumin Level 4.2 g/dL (3.5-5.2); Alkaline Phosphatase 104 U/L (35-105); Aspartate Amino Transferase 15 U/L (0-32); Blood Urea Nitrogen 8 mg/dL (6-20); C Reactive Protein 81.2 mg/L (0.0-4.9); Calcium 8.9 mg/dL (8.5-10.5); Carbon Dioxide 24 mmol/L (22-29); Chloride 103 mmol/L (98-107); Globulin 3.6 g/dL (1.3-4.6); Glomerular Filtration Rate 84.8 mL/min (90-130); Glucose 121 mg/dL (65-115); Lipase 19 U/L (13-60); Osmolality Calculated 286 mOsm/kg (285-295); Sodium 138 mmol/L (136-145); Total Bilirubin 0.3 mg/dL (0.15-1.2); Total Protein 7.8 g/dL (6.6-8.7)
[2023-11-02] MEDS: iohexol 350 mg/mL 500 mL Btl (per mL) IV (19:20)
[2023-11-02 20:17] VITALS: BP 126/89; PULSE 78; RESP 16; O2SAT 100
[2023-11-02] MEDS: piperacillin-tazobactam 4.5 GM in sodium chloride 0.9% (plus) 50 ML IV (21:14)
[2023-11-02] MEDS: acetaminophen 500 mg Tablet 1000 MG PO (21:28)
[2023-11-02 21:42] VITALS: BP 133/85; PULSE 83; O2SAT 100
[2023-11-02 22:40] VITALS: BP 134/83; PULSE 82; RESP 18; TEMP 36.4; O2SAT 97
[2023-11-02 22:54] VITALS: RESP 16
[2023-11-02] MEDS: morphine 4 mg/mL SDV 1 mL IVP (22:54)
[2023-11-02] MEDS: lactated ringers 1,000 ML 100 ML IV (22:55)
[2023-11-02] MEDS: ondansetron 2 mg/ML SDV 2 mL 4 MG IVP (22:55)
--- NOTE | 2023-11-02 23:23 | ECG_ITS ---
[facility] Test Date: 2023-11-02 Pat Name: Priya Mercedes Department: Room: 253 Gender: Female Police Chief Deputy: : 1995 Requested By: Herson Arias Order Number: [id number] Ricardo MD: Pineda Schwartz M.D. Measurements Intervals [place] Rate: 79 P: 74 UT: 168 QRS: 74 QRSD: 92 T: 42 QT: 356 QTc: 409 Interpretive Statements SINUS RHYTHM No previous ECG available for comparison Electronically Signed On 11-03-2023 14:46:31 CDT by Pineda Schwartz M.D. [email or web address]
--- NOTE | 2023-11-02 23:26 | PM.CONSULT ---
Providers/Reason For Consult Consulting Physician/Specialty*: Internal Medicine Reason for Consult*: Chest Pain Attending Physician: Herson Arias DO Primary Care Provider: Richar Pulido MD History of Present Illness History of Present Illness Priya Mercedes is a 28 year old female with a past medical history significant for hypertension who was admitted earlier today after presenting with right lower quadrant pain associated with episode of emesis prior and the day. She did had poor oral intake secondary to her symptoms. In the emergency department, she was found to have acute cholecystitis. She was admitted to general surgery. She is n.p.o. and started on antibiotics. About 10 minutes after receiving her first dose of morphine she developed acute chest pain. She reports it is a squeezing type sensation. Endorses associated shortness of breath as well as nausea/emesis. She denies prior morphine administration. She does note that her mother who is bedside and supportive has an allergy to morphine. She had a laparoscopic cholecystectomy last year and believes they used hydrocodone postoperatively. She reportedly did well with this medication. Patient denies any known heart disease. EKG obtained found to be in normal sinus rhythm without acute ischemic changes. Troponin obtained and found to be negative baseline. Review of Systems Narrative: A complete review of systems was obtained and is negative except as stated in HPI. Medications/Allergies Home Medications Medication Instructions Recorded Confirmed Last Taken Type cetirizine 10 mg tablet (Zyrtec) 10 mg PO BEDTIME 08/27/21 11/02/23 07/14/22 History citalopram 10 mg tablet See Rx Instructions .Route 05/06/23 11/02/23 Unknown Rx .COMPLEX #30 tabs Allergies Allergy/AdvReac Type Severity Reaction Status Date / Time morphine Allergy ADR-Chest Verified 11/02/23 23:36 Pain Current Medications Generic Name Dose Route Start Last Admin Trade Name Freq PRN Reason Stop Dose Admin Lactated Ringer's 1,000 mls @ 100 mls/hr 11/02/23 22:31 11/02/23 22:55 Lactated Ringers IV 100 mls/hr .Q10H PRIMO Administration Ondansetron HCl 4 mg 11/02/23 22:31 11/02/23 22:55 Ondansetron 2 Mg/Ml Sdv 2 Ml IVP 4 mg Q6H PRN Administration NAUSEA AND VOMITING PFSH Acute PFSH: Medical History Encounter for dietary treatment of hypertension Contraceptive use HTN (hypertension) Surgical History History of laparoscopic cholecystectomy History of cholecystectomy 07/15/22 - Arias Family History Father Hypertension Grandmother Hypertension H/O coronary angiogram with stents Hx of CABG Social History Smoking and tobacco/nicotine status: never used tobacco/nicotine Vitals/I&O/Wt Last Vital Signs Temp 97.6 F 11/02/23 22:40 Pulse 82 11/02/23 22:40 Resp 16 11/02/23 22:54 BP 134/83 11/02/23 22:40 Pulse Ox 97 11/02/23 22:40 O2 Del Method Room Air 11/02/23 23:01 11/02/23 11/02/23 11/03/23 14:59 22:59 06:59 Intake Total 50 / 50 Balance 50 / 50 Weight last 48 hrs Weight 77.292 kg Weight 73.936 kg Physical Exam Narrative: General: Patient is awake. Appears fatigued but pleasant. Head: Normocephalic. Atraumatic. EOM intact. Neck: No JVD. Cardiovascular: RRR. No gallops. No murmurs. No peripheral edema. Lungs: Clear to auscultation, no use of accessory muscles, no crackles or wheezes. Skin: No jaundice. No rashes. Abdomen: Normal bowel sounds, abdomen soft. Extremities: No cyanosis or clubbing. Musculoskeletal: No swollen or erythematous joints. Neurological: Moves all 4 extremities. No myoclonus. Data 11/02/23 18:45 11/02/23 18:45 A&P Assessment and plan (1) Chest pain: Suspect secondary to medication side effect from morphine Morphine has been discontinued and added to allergy list Monitor for worsening reaction Rule out acute coronary syndrome with serial troponin EKG obtained and reviewed, no acute ischemic changes Continuous telemetry monitoring (2) Acute appendicitis: Management per primary, general surgery Agree with antibiotics Anticipate surgery Will discontinue morphine as noted above Trial of Toradol and hydromorphone if needed Increase fluids for the next couple of hours Consult Attestations Medical Necessity Statement: Thank you for this consultation. Internal medicine will continue to follow. Coding Level of Care Code Acute Code for [facility] Diagnoses Chest pain R07.9 Acute appendicitis K35.80
[2023-11-02 23:29] VITALS: BP 136/90; PULSE 84; RESP 18; TEMP 36.4; O2SAT 98
[2023-11-02] MEDS: LORazepam 2 mg/mL INJ 10 mL MDV 0.5 MG IVP (23:32)
--- NOTE | 2023-11-02 23:55 | PC.NURSE ---
Allergic Reaction While completing patient admission, patient request pain medication for right lower quadrant abdominal pain rated at a 5. This nurse administered 4mg IVP Morphine as ordered. At approximately 2310 patient began complaining of some chest heaviness and shortness of breath followed by severe upper epigastric/chest pain. Patient vital signs taken and were noted to be stable. STAT EKG ordered per protocol and completed, reading sinus rhythm. Dr. Arias notified of patient reaction following Morphine and Troponin series was ordered stat along with hospitalist consult to Dr. Calzada. Dr. Calzada immediately notified of patient situation and placed orders. Ativan 0.5mg IVP overridden from pyxis by this nurse and given per Dr. Calzada's order of 0.5mg IVP Ativan q4h prn as patient was still experiencing severe epigastric/chest pain and active vomiting. Morphine discontinued from patient MAR and added as allergy in chart. Patient armband updated to show morphine allergy. Dr. Calzada on floor at this time to round with patient. Verbal order given for Toradol 15mg IVP q6hr prn pain and to increase LR to 250mL/hr for [address] Calzada.
[2023-11-03] VITALS (16 sets, daily range): BP systolic 107–150; BP diastolic 64–104; PULSE 74–96; RESP 10–19; TEMP 36.4–36.8; O2SAT 93–98
[2023-11-03 00:01] LABS: Troponin(5th) Baseline < 6 ng/L (0-10)
[2023-11-03 01:53] LABS: Troponin 5 2HR Delta 0.00001 ABS# (0-10)
[2023-11-03] MEDS: piperacillin-tazobactam 3.375 GM in sodium chloride 0.9% (plus) 50 ML IV ×2 (03:20→09:33)
[2023-11-03] MEDS: lactated ringers 1,000 ML 100 ML IV (03:57)
[2023-11-03 05:58] LABS: Troponin 5 6HR Delta 0.00001 ng/L (0-12)
[2023-11-03 07:46] LABS: Add Urine Microscopic? YES; Bilirubin Urine Neg (Negative); Blood Urine 3+ (Negative); Glucose Urine UA Norm (Normal); Ketones Urine 1+ (Negative); Leukocyte Esterase Urine 2+ (Negative); Nitrate Urine Negative (Negative); Protein Urine 1+ (Negative); RBC Urine TOO NUMEROUS TO CNT /hpf (0-2); Urine Appearance Cloudy (CLEAR); Urine Color Yellow (Yellow); Urobilinogen Urine 1 mg/dL (Negative); pH Urine 7 (5-7)
[2023-11-03 07:47] LABS: Add Urine Culture? Yes; Bacteria Urine 1+ /hpf; Squamous Epithelial Cell Urine 0-4 /hpf (0-5)
--- NOTE | 2023-11-03 09:19 | PC.CHAP ---
Pastoral Care Encounter/Spiritual Assessment Type of Contact [] Declined maintenance shop laborer visit [] Patient/Family/Request visit [] Outpatient visit [] Follow-up visit [] Physician referral [] Code/Alert [x] Routine visit [] Staff referral [] Actively dying [x] Patient sleeping [] Family support [] [] Out of room [] Palliative care [] [] Receiving care in room [] Pre-surgical visit [] Trauma [] Long length of stay [] ICU visit [] Other: Relational/Emotional Strength [] Patient feels connected with others/family/visitors/staff [] Distress [] Loneliness/isolation [] Abandonment Spirituality of Patient [] Person of Bella [] Attends Mandaeism of their Bella [] Believes in Prayer [] Reads Bible or Voodoo materials [] There are Spiritual issues to be addressed Building Rental Superintendent Interventions [x] Prayer [] Active listening [] Non-anxious presence [] Spiritual/emotional support [] Crisis/trauma care [] Spiritual counseling [] Bereavement support [] Provided bereavement packet [] Provided Bible/devotional materials [] Provided toy/stuffed animal, coloring book to patient or family member [] Provided Communion [] Anointing/Imperial [] Salvation [] Completed spiritual assessment [] Other: Impact on Illness or Injury [] Angry [] Fearful [] Anxious [] Often cries [] Exhaustion [] Unable to work [] Unable to attend mosque [] Unable to walk/stand [] Unable to read [] Unable to drive [] Unable to eat/drink [] Unable to sleep [] Unable to be with family [] Patient intubated [] Other: Summary Time spent with patient
--- NOTE | 2023-11-03 10:15 | P.HP_ITS ---
Providers/Chief Complaint 2 Admitting Physician: Herson Arias DO Primary Care Provider: Richar Pulido MD Chief Complaint: right abd pain low urgent care sent History of Present Illness Priya Mercedes is a 28 year old female who presented to the hospital with 1 day history of right lower quadrant abdominal pain. The pain is sharp and severe and does not radiate. Palpation makes pain worse. Nothing seems to make the pain better. She does report some nausea and emesis. Denies any hematemesis, diarrhea, constipation, hematochezia and/or melena. CT the abdomen pelvis shows acute appendicitis. Review of Systems 2 General: Reports: 10 or more systems reviewed and unremarkable except in HPI and below Medications/Allergies Home Medications Medication Instructions Recorded Confirmed Last Taken Type cetirizine 10 mg tablet (Zyrtec) 10 mg PO BEDTIME PRN allergies 08/27/21 11/03/23 07/14/22 History citalopram 10 mg tablet 10 mg PO DAILY 11/03/23 11/03/23 Unknown History Allergies Allergy/AdvReac Type Severity Reaction Status Date / Time morphine Allergy ADR-Chest Verified 11/02/23 23:36 Pain PFSH Acute 2 PFSH: Medical History Encounter for dietary treatment of hypertension Contraceptive use HTN (hypertension) Surgical History History of laparoscopic cholecystectomy History of cholecystectomy 07/15/22 - Hugo Family History Father Hypertension Grandmother Hypertension H/O coronary angiogram with stents Hx of CABG Social History Smoking and tobacco/nicotine status: never used tobacco/nicotine Vitals/I&O/Wt Last Vital Signs Temp 98.0 F 11/03/23 07:57 Pulse 79 11/03/23 08:24 Resp 18 11/03/23 04:00 BP 115/76 11/03/23 07:57 Pulse Ox 98 11/03/23 08:24 O2 Del Method Room Air 11/03/23 08:24 11/02/23 11/03/23 11/03/23 22:59 06:59 14:59 Intake Total 50 / 50 1050.000 / 1100.000 Balance 50 / 50 1050.000 / 1100.000 Weight last 48 hrs Weight 171 lb 12.8 oz Weight 170 lb 6.4 oz Weight 163 lb Physical Exam 2 Narrative: General : Patient is well developed , no acute distress, oriented x3 Head : Normal cephalic, a-traumatic. Ears : Pinnae and external canal are normal. Hearing is normal. Eyes : PERRLA, Sclera and injection are normal. No conjunctival discharge. Nose : Mucous membranes are without erythema. Throat : buccal mucosa is normal, gums are without significant recession or hypertrophy. Lungs : Equal chest rise bilaterally, no use of accessory muscles, trachea is midline. Cor : Rate and rhythm are normal. Abdomen : Soft, ND, tender to palpation right lower quadrant, negative Rovsing's, no g/r/m Extremities : No edema, no cyanosis or clubbing, dorsalis pedis pulses are present bilaterally, non-tender to palpation of calves. Upper extremities are normal bilaterally. Back : non-tender to palpation, no CVA tenderness. Neuro : CN II - XII intact, Upper and lower extremities have equal and full strength Data 11/02/23 18:45 11/02/23 18:45 A&P Assessment and plan (1) Acute appendicitis: Plan Laparoscopic Appendectomy The risks and benefits of the procedure, including but not limited to, bleeding, infection, scar, numbness, pain, damage to surrounding structures, conversion to an open procedure, were explained to the patient. He is understanding of the risks and wishes to proceed. Attestations 2 Medical Necessity Statement*: Patient might be discharged home after the procedure. Continue admission depends on the severity of her appendicitis which will be determined intraoperatively Coding Level of Care Code 46124 Diagnoses Acute appendicitis K35.80
[2023-11-03] MEDS: ondansetron 2 mg/ML SDV 2 mL 4 MG IVP (10:47)
--- NOTE | 2023-11-03 11:30 | P.ANESASSM_ITS ---
Pre-Anesthetic Assessment Height/Weight: Height 1.6 m Weight 77.927 kg Temp Pulse Resp BP Pulse Ox O2 Del Method 98.2 F 78 18 129/84 97 Room Air 11/03/23 11:18 11/03/23 11:18 11/03/23 04:00 11/03/23 11:18 11/03/23 11:18 11/03/23 11:18 Operation Date: 11/03/23 12:00 Proposed Procedures p Laparoscopic Appendectomy(Not Applicable) - Herson Arias DO Familial anesthetic complications: None Was Beta Raquel taken within 24 hours: N/A Was Clonidine taken within 24 hours: N/A Last intake: Intake Last Liquid Date 11/02/23 Last Liquid Time 23:00 Last Solid Date 11/02/23 Last Solid Time 21:00 Social No alcohol and No tobacco Exam alert, oriented x 3, clear to auscultation bilaterally and regular rate & rhythm Airway Mallampati: Class II Dentition: full Anesthetic Plan ASA status: 1 Anesthesia: General Risk of > 500 ml blood loss (7ml/kg in children): No Medications/Allergies Home Medications Medication Instructions Recorded Confirmed Last Taken Type cetirizine 10 mg tablet (Zyrtec) 10 mg PO BEDTIME PRN allergies 08/27/21 11/03/23 07/14/22 History citalopram 10 mg tablet 10 mg PO DAILY 11/03/23 11/03/23 Unknown History Allergies Allergy/AdvReac Type Severity Reaction Status Date / Time morphine Allergy ADR-Chest Verified 11/02/23 23:36 Pain Current Medications Generic Name Dose Route Start Last Admin Trade Name Freq PRN Reason Stop Dose Admin Lactated Ringer's 1,000 mls @ 100 mls/hr 11/02/23 22:31 11/03/23 03:57 Lactated Ringers IV 100 mls/hr .Q10H PRIMO Administration Piperacillin Sod/Tazobactam 50 mls @ 100 mls/hr 11/02/23 22:31 11/03/23 10:52 Sod 3.375 gm/ Sodium Chloride IV Infused Q6H PRIMO Infusion Protocol Lorazepam 0.5 mg 11/02/23 23:32 11/02/23 23:32 Lorazepam 2 Mg/Ml Inj 10 Ml Mdv IVP 0.5 mg Q4H PRN Administration ANXIETY Ondansetron HCl 4 mg 11/02/23 22:31 11/03/23 10:47 Ondansetron 2 Mg/Ml Sdv 2 Ml IVP 4 mg Q6H PRN Administration NAUSEA AND VOMITING PFSH Anesthesia Medical History Encounter for dietary treatment of hypertension Contraceptive use HTN (hypertension) Surgical History History of laparoscopic cholecystectomy History of cholecystectomy 07/15/22 - Hugo Family History Father Hypertension Grandmother Hypertension H/O coronary angiogram with stents Hx of CABG Social History Smoking and tobacco/nicotine status: never used tobacco/nicotine Data Anesthesia 11/02/23 18:45 11/02/23 18:45 Short CBC 11/02/23 Range/Units 18:45 WBC 12.78 H (3.29-11.43) 10^3/uL Hgb 13.00 (11.27-16.99) g/dL Hct 40.1 (36-47) % MCV 86.1 (85-98) fl Plt Count 307 (157-399) 10^3/cmm Neut % (Auto) 75.6 % Neut # (Auto) 9.67 H (1.8-7.7) 10^3/uL BMP 11/02/23 18:45 Sodium 138 Potassium 4.0 Chloride 103 Carbon Dioxide 24 BUN 8 Creatinine 0.8 Glucose 121 H Calcium 8.9 Cardiac Enzymes 11/02/23 11/03/23 11/03/23 Range/Units 23:35 01:32 05:36 Troponin T Baseline < 6 (0-10) ng/L Troponin T 120 Minute 6.00 (0-10) ng/L Delta Troponin T 0.13075 (0-10) ABS# Troponin T Hi Sens 6Hr 6.00 (0-10) ng/L Troponin T Hi Sens 6Hr Delta 0.27508 (0-12) ng/L Liver Function 11/02/23 Range/Units 18:45 Total Bilirubin 0.3 (0.15-1.2) mg/dL AST 15 (0-32) U/L ALT 13 (0-33) U/L Alkaline Phosphatase 104 (35-105) U/L Albumin 4.2 (3.5-5.2) g/dL Urine 11/03/23 Range/Units 07:08 Urine Color Yellow (Yellow) Urine Appearance Cloudy A (CLEAR) Urine pH 7 (5-7) Ur Specific [place] 1.010 (1.005-1.030) Urine Protein 1+ H (Negative) Urine Glucose (UA) Norm (Normal) Urine Ketones 1+ H (Negative) Urine Nitrate Negative (Negative) Urine Bilirubin Neg (Negative) Ur Leukocyte Esterase 2+ H (Negative) Urine RBC Too numerous to cnt H (0-2) /hpf Urine WBC 5-10 H (0-5) /hpf Coags 11/02/23 18:45 C-Reactive Protein 81.2 H Cardiac Studies: 2 No Data to Display
[2023-11-03] MEDS: sodium chloride 0.9% 1,000 ML 30 ML IV (11:36)
[2023-11-03] MEDS: lidocaine-epi 2% PF 1:200,000 20 mL SDV XX (12:15)
--- NOTE | 2023-11-03 12:54 | P.OP_ITS ---
Operative Report Date of procedure: November 03, 2023 Pre-op diagnosis: Acute appendicitis Post-op diagnosis: same Procedure done: Laparoscopic appendectomy Implants: None Specimens removed/disposition: Appendix Surgeon: Herson Arias DO Anesthesia: General and Local Estimated blood loss (mL): 5 Complications: None apparent Brief History: This is a very pleasant 28-year-old female who presented to the hospital with abdominal pain. She was diagnosed with acute appendicitis. Laparoscopic appendectomy was indicated. The risks and benefits were explained and documented. Procedure: Patient was wheeled into the operative room and placed on the OR table in a supine position. Abdomen was inspected prepped and draped in usual sterile fashion. Time-out was performed and all present were in agreement. A 15 blade scalp was used to make a stab incision in the left upper quadrant and intra- abdominal insufflation was achieved using a Veress needle. After localizing the tissue incisions were made and a 12 millimeter trocar was placed into the umbilicus as well as a 5mm in the right lower quadrant and a 5 mm in the left lower quadrant . The appendix was identified and was mildly inflamed. I used the Ligasure to ligate the mesoappendix at the base. I then used 2 PDS endo- loops to snare the base of the appendix. I then used the Ligasure to ligate the appendix distally. The appendix was removed from the abdomen using an Endo- Catch bag through the umbilical incision. I examined the abdomen and no further pathology was identified. Hemostasis was noted. I then closed the umbilical site with a Aramis-Jeanine and 0 Vicryl suture in a figure of 8 f ashion. All ports removed. Skin was washed and dried. Incisions were closed with 4 O Vicryl in a subcuticular interrupted fashion. Skin glue was applied. Patient tolerated the procedure well.
--- NOTE | 2023-11-03 12:56 | PM.DCS ---
Discharge Providers Date of Admission: 11/02/23 21:19 Date of Discharge: November 03, 2023 Attending Provider at Admission: Herson Arias DO Attending Provider at Discharge: Herson Arias DO Primary Care Provider: Richar Pulido MD Diagnoses at Discharge Discharge Diagnosis (1) Acute appendicitis: Status: Acute Reason for Visit Reason for Visit: right abd pain low urgent care sent Hospital Course Hospital Course This very pleasant 28-year-old female who presents to the hospital with acute appendicitis. She underwent laparoscopic appendectomy and was discharged home the same day in good condition Physical Exam Narrative: General : Patient is well developed , no acute distress, oriented x3 Head : Normal cephalic, a-traumatic. Ears : Pinnae and external canal are normal. Hearing is normal. Eyes : PERRLA, Sclera and injection are normal. No conjunctival discharge. Nose : Mucous membranes are without erythema. Throat : buccal mucosa is normal, gums are without significant recession or hypertrophy. Lungs : Equal chest rise bilaterally, no use of accessory muscles, trachea is midline. Cor : Rate and rhythm are normal. Abdomen : Soft, ND, appropriately tender, no g/r/m Extremities : No edema, no cyanosis or clubbing, dorsalis pedis pulses are present bilaterally, non-tender to palpation of calves. Upper extremities are normal bilaterally. Back : non-tender to palpation, no CVA tenderness. Neuro : CN II - XII intact, Upper and lower extremities have equal and full strength Discharge Data Studies Completed and Pending Completed Studies During Hospitalization Category Date Time Status CT abdomen pelvis w con* [id number] Stat Cat Scan 11/02/23 18:49 Completed Pending at discharge Category Date Time Status Urine Culture Stat Lab 11/03/23 07:08 Received Pathology: Surgical [PTH] Routine Pth 11/03/23 12:26 Ordered Radiology Impressions Abdomen/Pelvis CT 11/02/23 18:49 IMPRESSION: Findings consistent with acute appendicitis. Laboratory Results WBC 12.78 10^3/uL (3.29-11.43) H 11/02/23 18:45 RBC 4.66 10^6/uL (3.85-5.65) 11/02/23 18:45 Hgb 13.00 g/dL (11.27-16.99) 11/02/23 18:45 Hct 40.1 % (36-47) 11/02/23 18:45 MCV 86.1 fl (85-98) 11/02/23 18:45 MCH 27.9 pg (27-33) 11/02/23 18:45 MCHC 32.4 g/dL (30-55) 11/02/23 18:45 RDW 12.3 % (12.1-15.1) 11/02/23 18:45 Plt Count 307 10^3/cmm (157-399) 11/02/23 18:45 MPV 10.4 fL (7.4-10.4) 11/02/23 18:45 Neut % (Auto) 75.6 % 11/02/23 18:45 Lymph % (Auto) 17.0 % 11/02/23 18:45 [place] % (Auto) 5.5 % 11/02/23 18:45 Eos % (Auto) 1.3 % 11/02/23 18:45 Baso % (Auto) 0.4 % 11/02/23 18:45 Neut # (Auto) 9.67 10^3/uL (1.8-7.7) H 11/02/23 18:45 Lymph # (Auto) 2.2 10^3/uL (0.8-4.8) 11/02/23 18:45 [place] # (Auto) 0.7 10^3/uL (0.2-0.9) 11/02/23 18:45 Eos # (Auto) 0.2 10^3/uL (0.0-0.8) 11/02/23 18:45 Baso # (Auto) 0.1 10^3/uL (0.0-0.1) 11/02/23 18:45 Nucleated RBC % (auto) 0 % 11/02/23 18:45 Nucleated RBCs # 0.0 /100WBC 11/02/23 18:45 Sodium 138 mmol/L (136-145) 11/02/23 18:45 Potassium 4.0 mmol/L (3.5-5.1) 11/02/23 18:45 Chloride 103 mmol/L (98-107) 11/02/23 18:45 Carbon Dioxide 24 mmol/L (22-29) 11/02/23 18:45 Anion Gap 15.0 (5-19) 11/02/23 18:45 BUN 8 mg/dL (6-20) 11/02/23 18:45 Creatinine 0.8 mg/dL (0.5-0.9) 11/02/23 18:45 GFR Calculation 84.8 mL/min (90-130) L 11/02/23 18:45 Glucose 121 mg/dL (65-115) H 11/02/23 18:45 Calculated Osmolality 286 mOsm/kg (285-295) 11/02/23 18:45 Calcium 8.9 mg/dL (8.5-10.5) 11/02/23 18:45 Total Bilirubin 0.3 mg/dL (0.15-1.2) 11/02/23 18:45 AST 15 U/L (0-32) 11/02/23 18:45 ALT 13 U/L (0-33) 11/02/23 18:45 Alkaline Phosphatase 104 U/L (35-105) 11/02/23 18:45 Troponin T Baseline < 6 ng/L (0-10) 11/02/23 23:35 Troponin T 120 Minute 6.00 ng/L (0-10) 11/03/23 01:32 Delta Troponin T 0.51576 ABS# (0-10) 11/03/23 01:32 Troponin T Hi Sens 6Hr 6.00 ng/L (0-10) 11/03/23 05:36 Troponin T Hi Sens 6Hr Delta 0.49830 ng/L (0-12) 11/03/23 05:36 C-Reactive Protein 81.2 mg/L (0.0-4.9) H 11/02/23 18:45 Total Protein 7.8 g/dL (6.6-8.7) 11/02/23 18:45 Albumin 4.2 g/dL (3.5-5.2) 11/02/23 18:45 Globulin 3.6 g/dL (1.3-4.6) 11/02/23 18:45 Lipase 19 U/L (13-60) 11/02/23 18:45 HCG, Qual Negative (Negative) 11/02/23 18:45 Urine Color Yellow (Yellow) 11/03/23 07:08 Urine Appearance Cloudy (CLEAR) A 11/03/23 07:08 Urine pH 7 (5-7) 11/03/23 07:08 Ur Specific [place] 1.010 (1.005-1.030) 11/03/23 07:08 Urine Protein 1+ (Negative) H 11/03/23 07:08 Urine Glucose (UA) Norm (Normal) 11/03/23 07:08 Urine Ketones 1+ (Negative) H 11/03/23 07:08 Urine Blood 3+ (Negative) H 11/03/23 07:08 Urine Nitrate Negative (Negative) 11/03/23 07:08 Urine Bilirubin Neg (Negative) 11/03/23 07:08 Urine Urobilinogen 1 mg/dL (Negative) H 11/03/23 07:08 Ur Leukocyte Esterase 2+ (Negative) H 11/03/23 07:08 Urine RBC Too numerous to cnt /hpf (0-2) H 11/03/23 07:08 Urine WBC 5-10 /hpf (0-5) H 11/03/23 07:08 Ur Squamous Epith Cells 0-4 /hpf (0-5) H 11/03/23 07:08 Amorphous Sediment Not Reportable 11/03/23 07:08 Urine Bacteria 1+ /hpf (NONE) H 11/03/23 07:08 Procedures Performed Laparoscopic appendectomy Vitals Last Vital Signs Temp 98.2 F 11/03/23 11:18 Pulse 78 11/03/23 11:18 Resp 18 11/03/23 04:00 BP 129/84 11/03/23 11:18 Pulse Ox 97 11/03/23 11:18 O2 Del Method Room Air 11/03/23 11:18 O2 Flow Rate 8 11/03/23 12:50 Discharge Plan Discharge Patient Disposition: Home Condition: Stable Prescriptions: New amoxicillin-pot clavulanate 875-125 mg tablet 1 tab PO BID Qty: 14 0RF Miralax 17 gram/dose powder 17 g PO DAILY 7 Days Qty: 119 0RF Colace 100 mg capsule 100 mg PO BID Qty: 14 0RF hydrocodone-acetaminophen 7.5-325 mg tablet 1 tab PO Q6H PRN (Reason: pain) Qty: 20 0RF Continued cetirizine [Zyrtec] 10 mg tablet 10 mg PO BEDTIME PRN (Reason: allergies) citalopram 10 mg tablet 10 mg PO DAILY Discharge Orders: Discharge Order (Routine); Ordered 11/03/23 Ordered By: Herson Arias Referrals: Richar Pulido MD [Primary Care Provider] - 4-7 days Herson Arias DO [Physician] - 2 weeks Discharge Diet: Advance as tolerated Discharge Activity: Resume usual activity Patient Instructions: Acute Wound Care (DC), Opioid Safety, Post Anesthesia Care Activity Restrictions/Additional Instructions: Do not soak incisions underwater for 2 weeks. Shower regularly Discharge Attestations Time Spent in Discharge Care*: less than 30 min Quality Metrics Clinical Quality Measures [ No reported AMI, CVA or VTE this stay] Coding Level of Care Code Acute Code for [facility] Diagnoses Acute appendicitis K35.80
--- NOTE | 2023-11-03 13:25 | ANE.PACU2 ---
Inpatient post-anesthesia follow up: Airway intact: Yes Vital signs: Temperature 98.2 F Pulse Rate 83 Respiratory Rate 17 Blood Pressure 134/81 Pulse Oximetry 93 Oxygen Delivery Me thod [ Room Air Current Rate & Del bethany] Oxygen Delivery Me thod Room Air Oxygen Flow Rate 8 Fraction of Inspir ed Oxygen Hydration adequate: Yes Nausea and vomiting: No Pain level: 1 Mental status: Baseline
[2023-11-03] MEDS: HYDROcodone-acetaminophen 7.5-325 mg Tablet 1 TAB PO (13:52)
--- NOTE | 2023-11-03 16:29 | PM.PN ---
Subjective Subjective: No chest pain or pressure, no trouble breathing. Some abdominal pain. Vitals/I&O/Wt Last Vital Signs Temp 98.0 F 11/03/23 15:53 Pulse 95 11/03/23 15:53 Resp 17 11/03/23 13:20 BP 122/82 11/03/23 15:53 Pulse Ox 96 11/03/23 15:53 O2 Del Method Room Air 11/03/23 15:53 O2 Flow Rate 8 11/03/23 12:55 11/03/23 11/03/23 11/03/23 06:59 14:59 22:59 Intake Total 1050.000 / 1100.000 100 / 100 Output Total 2 / 2 Balance 1050.000 / 1100.000 98 / 98 Weight last 48 hrs Weight 77.927 kg Weight 77.292 kg Weight 73.936 kg Physical Exam Narrative: Sleeping, wakes up to voice. at bedside. Const: COMMON NORMALS: patient oriented x3 and alert GENERAL APPEARANCE: cooperative ORIENTATION/CONSCIOUSNESS: Yes awake HENMT: COMMON NORMALS: oropharynx normal Neck/C-Spine: COMMON NORMALS: no JVD Resp: COMMON NORMALS: normal respiratory effort and clear to auscultation bilaterally AUSCULTATION: clear to auscultation bilaterally Cardio: COMMON NORMALS: no JVD, regular rhythm, S1 normal heart sound present, S2 normal heart sound present and No murmurs present (Cardio) RHYTHM: regular rhythm HEART SOUNDS: S1 normal heart sound present and S2 normal heart sound present Extremity: COMMON NORMALS: no joint enlargement and no pedal edema Neuro: COMMON NORMALS: patient oriented x3 and moves all extremities SENSORIUM/ORIENTATION: Yes alert Skin: COMMON NORMALS: no rashes or lesions noted GENERAL SKIN EXAM: no rashes or lesions noted Data 11/02/23 18:45 11/02/23 18:45 A&P Assessment and plan (1) Chest pain: Resolved. Reviewed troponin series, without elevation. Reviewed EKG, sinus. Discussed with nursing, protective services case worker. Possible adverse reaction to morphine, it has been added to her allergy list. (2) Acute appendicitis: Reviewed vitals, CBC, CMP, troponin series, EKG. Reviewed surgery note. Status post appendectomy. On Zosyn. Receiving NS 30 mill per hour, and LR, has been started on regular diet. Stop the fluids. Being discharged home by surgery. Attestations Medical Necessity Statement*: Continue admission after acute appendicitis complicated by episode of chest pain, possibly adverse reaction to morphine, status post appendectomy. and High MDM includes amount and/or complexity of data reviewed/ordered [ previous or external records, resulted lab(s)/test(s), ordered lab(s)/test(s) and other healthcare professional discussion] as documented Diagnoses Chest pain R07.9 Acute appendicitis K35.80
== END 2023-11-03 16:40 | disposition home or self-care (01) ==
LOC: ER 21:08 → MEDSURG 21:24
PROVIDERS: Admitting Provider Surgery; Emergency Provider Nurse Practitioner Family; PCP Family Medicine; Visit Provider Surgery
PROC: 0DTJ4ZZ Resection of Appendix, Percutaneous Endoscopic Approach (ICD-10-PCS; CPT 44970; principal; 2023-11-03 12:00)
DX: K35.80 Unspecified acute appendicitis (principal); I10 Essential (primary) hypertension
CPT/HCPCS: 44970; 36415; 74177; 80053; 81001; 83690; 84484; 84703; 85025; 86140; 87086; 88304; 93005; 96365; 99285; G0378; J0330; J1100; J2060; J2250; J2270; J2405; J2543; J2704; J3010; J3490; J7030; J7120; Q9967